=== PATIENT | male | born 1940 | race Caucasian/White ===

== ENCOUNTER 2016-07-18 16:58 | Observation (INO) | payer MEDICARE, OTHER ==
[~2016-07-18] VITALS: Ht 180.3 cm; Wt 90.9 kg
--- NOTE | ~2016-07-18 | HEMODYNAMI ---
PATIENT:MAXWELL DANIELSON MEDICAL RECORD: [id number] : 42 [facility] [id number] ADMISSION DATE: 07/18/16 Generatedon:07/19/201611:00 Patient name: MAXWELL DANIELSON Patient #: [id number] SSN: [id number] : 1940 Date of study: 07/19/2016 Page: Of Hemodynamic Procedure Report Patient Data Patient Demographics Procedure consent was obtained First Name: MAXWELL Gender: Male Last Name: JAGJIT : 1940 Middle Initial: W Age: 76 year(s) Patient #: [id number] Race: SSN: [id number] Additional ID: [id number] Contact details [address]: [address] [place] [address] State: [place] City: [place] Zip code: [address] Past Medical History Allergies Allergen Reaction Date Comments Reported Adhesive tape 12/31/2015 Other allergy 12/31/2015 macrodantin Adhesive tape 03/13/2016 Other allergy 03/13/2016 NITROFURANTOIN Other allergy 07/19/2016 SILK TAPE, MACRODANTIN Admission Admission Data Admission Date: 07/18/2016 Admission Time: 19:08 Room #: D.2118 Height (in.): 71 BSA: 2.11 (m2) Height (cm.): 180.34 BMI: 27.89 (kg/m2) Weight (lbs.): 200 Weight (kg.): 90.72 Lab Results Lab Result Date: 07/19/2016 Lab Result Time: 0:00 Biochemistry Name Units Result Min Max BUN mg/dl 16 --(---*)-- 7 18 Creatinine mg/dl 1.1 --(--*-)-- 0.6 1.3 CBC Name Units Result Min Max Hemoglobin g/dl 13.1 -*(----)-- 13.5 17.5 Procedure Procedure Types Cath Procedure Diagnostic Procedure [facility] w/Coronaries Procedure Description Procedure Date Procedure Date: 07/19/2016 Procedure Start Time: 10:39 Procedure End Time: 10:56 Procedure Staff Name Function Heriberto Guerrero MD Performing Physician Toñito Anne RT Scrub Makenzie Christy RN Nurse Casey Marie RT Loan Processing Supervisor Robin Abarca RT Monitor Procedure Data Cath Procedure Fluoroscopy Diagnostic fluoroscopy Total fluoroscopy Time: 2.1 time: 2.1 min min Diagnostic fluoroscopy Total fluoroscopy dose: 457 dose: 457 mGy mGy Contrast Material Contrast Material Type Amount (ml) Isovue 300 72 Entry Location Entry Primary Successful Side Size Upsize Upsize Entry Closure Succes sful Closure Location (Fr) 1 (Fr) 2 (Fr) Remarks Device Remarks Femoral Right 5 Fr Exoseal artery Diagnostic catheters Device Type Used For End Catheter Placement Cordis 5Fr JL 4.0 Left Coronary Catheter (MP) Angiography Cordis 5Fr 3DRC Catheter Right Coronary (MP) Angiography Cordis 5Fr Pigtail LV Angiography Catheter (MP) Procedure Complications No complications Procedure Medications Medication Administration Route Dosage Oxygen NC 2 l/min Lidocaine 2% added to field 20 Heparin Flush Bag added to field 2 bags (1000units/500ml NS) 0.9% NaCl I.V. 100 ml/hr Versed I.V. 1 mg Fentanyl I.V. 50 mcg Versed I.V. 1 mg Fentanyl I.V. 50 mcg Versed I.V. 1 mg Fentanyl I.V. 50 mcg Versed I.V. 1 mg Fentanyl I.V. 50 mcg Hemodynamics Rest BSA: 2.11 (m2) HGB: 13.1 (g/dl) O2 Consumption: Estimated: 240.98 (ml/min) O2 Co nsumption indexed: Estimated:114.21 (ml/min/m) Heart Rate: 68 (bpm) Pressure Samples Time Site Value (mmHg) Purpose Heart Use Rate(bpm) 10:47 LV 137/1,20 EDP 74 10:48 AO 141/67(98) Pullback 75 Gradients Valve Time Site Site 2 Mean SEP/DFP Peak To Heart Use 1 (mmHg) (sec/min) Peak Rate (mmHg) (bpm) Aortic 10:48 LV AO 29 30 75 141/67(98) Calculations Valve P-P Mean Valve Index Valve Source Name Gradient Area Flow (cm2) Aortic 29 29 Snapshots Pre Cath Intra NCS Post Cath Vital Signs Time Heart Resp SPO2 etCO2 RN4oyam NIBP (mmHg) Rhythm Pain Sedation Rate (ipm) (%) (mmHg) (mmHg) Status Level (bpm) 10:27:48 74 16 100 0 0 160/84(127) NSR 0 (11) 10(A) , No pain 10:32:09 70 17 99 0 0 145/77(115) NSR 0 (11) 10(A) , No pain 10:36:29 69 16 97 0 0 137/75(114) NSR 0 (11) 9(A) , No pain 10:40:49 66 19 96 0 0 125/66(103) NSR 0 (11) 9(A) , No pain 10:45:05 68 16 97 0 0 136/67(105) NSR 0 (11) 9(A) , No pain 10:49:21 75 16 93 0 0 136/71(108) NSR 0 (11) 9(A) , No pain 10:53:35 72 16 96 0 0 127/74(98) NSR 0 (11) 10(A) , No pain Medications Time Medication Route Dose Verified Delivered Reason Notes Effe ctiveness by by 10:23:05 Oxygen NC 2 Heriberto Buffie used for l/min Cesar Christy RN procedure 10:23:11 Lidocaine 2% added 20ml Heriberto Heriberto for local to vial Cesar Guerrero MD anesthetic field 10:23:17 Heparin Flush added 2 Heriberto Heriberto used for Bag to bags Cesar Guerrero MD procedure (1000units/500ml field NS) 10:23:26 0.9% NaCl I.V. 100 Heriberto Buffie Per ml/hr Cesar Christy RN physician 10:29:07 Versed I.V. 1 mg Heriberto Buffie for Cesar Christy RN sedation 10:29:13 Fentanyl I.V. 50 Heriberto Buffie for mcg Cesar Christy RN sedation 10:35:02 Versed I.V. 1 mg Heriberto Buffie for Cesar Christy RN sedation 10:35:06 Fentanyl I.V. 50 Heriberto Buffie for mcg Cesar Christy RN sedation 10:40:15 Versed I.V. 1 mg Heriberto Buffie for Cesar Christy RN sedation 10:40:18 Fentanyl I.V. 50 Heriberto Buffie for mcg Cesar Christy RN sedation 10:46:36 Versed I.V. 1 mg Heriberto Christy RN sedation 10:46:40 Fentanyl I.V. 50 Heriberto Christy RN sedation Procedure Log Time Note 10:00:27 Casey Marie RT(R) sent for patient. Start room use. 10:00:28 Time tracking: Regular hours 10:00:32 Plan of Care:Hemodynamics will remain stable., Cardiac rhythm will remain stable., Comfort level will be maintained., Respiratory function will remain adequate., Patient/ family verbilizes understanding of procedure., Procedure tolerated without complication., Recovers from procedure without complications.. 10:12:15 Patient received from Med II to CCL 1 Alert and oriented. Tansferred to table in Supine position. 10:12:20 Warm blankets applied, and jany hugger turned on for patient comfort. 10:12:21 Correct patient and procedure confirmed by team. 10:12:22 Signed procedure consent form obtained from patient. 10:12:23 ECG and BP/O2 sat monitors applied to patient. 10:23:05 Oxygen 2 l/min NC was given by Makenzie Christy RN; used for procedure; 10:23:11 Lidocaine 2% 20ml vial added to field was given by Heriberto Guerrero MD; for local anesthetic; 10:23:17 Heparin Flush Bag (1000units/500ml NS) 2 bags added to field was given by Heriberto Guerrero MD; used for procedure; 10:23:26 0.9% NaCl 100 ml/hr I.V. was given by Makenzie Christy RN; Per physician; 10:26:39 Vital chart was started 10:26:40 Baseline sample Acquired. 10:26:43 Rhythm: sinus rhythm 10:26:47 Full Disclosure recording started 10:26:59 H&P Date Dictated: 07/18/2016 Within 30 days and on chart.. 10:27:01 Pre-procedure instructions explained to patient. 10:27:01 Pre-op teaching completed and patient verbalized understanding. 10:27:06 Family in patients room. 10:27:08 Patient NPO since Midnight. 10:27:35 Patient allergic to Other allergySILK TAPE, MACRODANTIN 10:27:37 Is the patient allergic to Iodine/contrast media? No. 10:27:42 Is patient on blood thinner?No 10:27:45 Patient diabetic? No. 10:27:48 ----Pre-sedation anethsthesia assessment.---- 10:27:51 Previous problem with sedation/anesthesia? No ? 10:27:52 Snore? Yes 10:27:53 Sleep apnea? No 10:27:54 Deviated septum? No 10:27:56 Opens mouth fully? Yes 10:27:57 Sticks out tongue? Yes 10:27:59 Airway obstruction? No ? 10:28:01 Dentures? No ? 10:28:04 Pre procedure: right dorsailis pedis pulse 1+ Palpable, but thready & weak; easily obliterated 10:28:08 Patient pain scale 0/10 ?. 10:28:13 IV patent on arrival in right wrist with 0.9% NaCl at 10ml/hr. 10:28:33 Lab Result : BUN 16 mg/dl 10:28:33 Lab Result : Hemoglobin 13.1 g/dl 10::33 Lab Result : Creatinine 1.1 mg/dl 10:28:39 Lab results completed and on chart. 10:28:42 Right groin area was prepped with chlora-prep and draped in sterile fashion 10:28:42 Alarms reviewed by R. N. 10:28:43 Sharps counted by scrub and verified by R.N. 10:28:44 --------ALL STOP TIME OUT------ 10:28:44 Final Timeout: patient, procedure, and site verified with staff and physician. All members of the team are in agreement. 10:28:46 Right groin site verified by team. 10:28:49 Physical assessment completed. ASA score P 2 - A patient with mild systemic disease as per Heriberto Guerrero MD. 10:28:53 Sedation plan: IV Moderate Sedation Versed, Fentanyl 10:29:07 Versed 1 mg I.V. was given by Makenzie Christy RN; for sedation; 10:29:13 Fentanyl 50 mcg I.V. was given by Makenzie Christy RN; for sedation; 10:29:30 Use device set Femoral Dx 10:29:30 Acist Syringe opened to sterile field. 10:29:31 Bag Decanter opened to sterile field. 10:29:31 Medline Cath Pack opened to sterile field. 10:29:32 Terumo 5Fr [place] Sheath opened to sterile field. 10:29:32 St Fabián 260cm J .035 wire opened to sterile field. 10:29:33 Acist Hand Control opened to sterile field. 10:29:33 Acist Manifold opened to sterile field. 10:29:34 Diagnostic Infinity 5Fr Multipack catheter opened to sterile field. 10:29:34 Tegaderm 4 x 4 opened to sterile field. 10:29:52 Patient Height : 71 inches 10:29:55 Patient Weight : 200 lbs 10:35:02 Versed 1 mg I.V. was given by Makenzie Christy RN; for sedation; 10:35:06 Fentanyl 50 mcg I.V. was given by Makenzie Christy RN; for sedation; 10:36:46 Baseline sample Acquired. 10:38:21 Zero performed for pressure channel P1 10:39:47 Procedure started. 10:39:59 Local anesthetic to right femoral artery with Lidocaine 2% by Heriberto Guerrero MD.INITIAL ACCESS ONLY 10:40:15 Versed 1 mg I.V. was given by Makenzie Christy RN; for sedation; 10:40:18 Fentanyl 50 mcg I.V. was given by Makenzie Christy RN; for sedation; 10:40:21 A 5 Fr sheath was inserted into the Right Femoral artery 10:42:12 A Cordis 5Fr JL 4.0 Catheter (MP) was advanced over the wire and used for Left Coronary Angiography. 10:42:15 LCA angiography performed. 10:46:35 Catheter removed. 10:46:36 Versed 1 mg I.V. was given by Makenzie Christy RN; for sedation; 10:46:40 Fentanyl 50 mcg I.V. was given by Makenzie Christy RN; for sedation; 10:46:40 A Cordis 5Fr 3DRC Catheter (MP) was advanced over the wire and used for Right Coronary Angiography. 10:46:42 RCA angiography performed. 10:46:43 Catheter removed. 10:46:49 A Cordis 5Fr Pigtail Catheter (MP) was advanced over the wire and used for LV Angiography. 10:46:53 LV angiography performed. 10:46:54 LV gram done using CORTEZ 10:47:53 LV hemodynamics recorded. 10:47:56 Injector settings: Ml/sec: 10, Volume: 20, 10:48:09 EF : 60 % 10:48:11 Catheter removed. 10:48:50 Cordis 6Fr Exoseal opened to sterile field. 10:53:33 Procedure ended.(Physican Out) 10:53:36 Contrast amount:Isovue 300 72ml. 10:53:41 Sheath removed intact; hemostasis achieved with Exoseal to the Right Femoral artery. 10:53:48 Fluoroscopy time 02.10 minutes. 10:53:52 Flurop Dose total: 457 10:53:52 Fluoroscopy dose: 457 mGy 10:53:54 Sharps counted by scrub and verified by R.N. 10:53:54 Insertion/operative site no bleeding no hematoma. 10:53:57 Post-op/insertion site Right Femoral artery dressed using a 4 x 4 and Tegaderm. 10:54:05 Post right femoral artery:stable 10:54:06 Post Procedure Pulses reassessed and unchanged 10:54:08 Post procedure: right dorsailis pedis pulse 1+ Palpable, but thready & weak; easily obliterated. 10:54:11 Post procedure rhythm: sinus rhythm 10:54:18 Post procedure instruction explained to patient.Patient verbalizes understanding. 10:54:20 Procedure and supply charges have been captured, reviewed, submitted and are correct. 10:56:12 Procedure Complication : No complications 10:56:15 Vital chart was stopped 10:56:15 See physician's report for complete and final results. 10:56:19 Report given to PCU. 10:56:43 Patient transfered to PCU with Bed. 10:56:45 Procedure ended. 10:56:45 Full Disclosure recording stopped 10:56:48 End room use (Document Last) Device Usage Item Name Manufacture Quantity Catalog Hospital Part Current Minimal Lo t# / Number Charge Number Stock Stock Serial# Code Acist Acist 1 [id number] [id number] [id number] [id number] 20 Syringe [employer] Inc Bag Microtek 1 2002S 940112 10297 637879 5 DecEnterpriseDB [employer]. Medline Cardinal 1 [id number] 79931 535047 5 MembraneX Terumo 5Fr Terumo 1 [id number] 948037 561525 593929 [address] [facility] 1 331342 707127 667767 379899 30 260cm J .035 wire Acist Hand Acist 1 00132 428197 797553 363832 5 Control Medical [employer] Inc Acist Acist 1 84234 234439 948000 648506 5 Manifold Medical Systems Inc Diagnostic Cardinal 1 [id number] 457367 88785 782443 30 Infinity Health 5Fr Multipack catheter Tegaderm 4 3M 1 1626W 845009 405832 552561 5 x 4 Cordis 5Fr Cardinal 1 [id number] 5 JL 4.0 Health Catheter (MP) Cordis 5Fr Cardinal 1 388243 5 3DRC Health Catheter (MP) Cordis 5Fr Cardinal 1 [id number] 5 Pigtail Health Catheter (MP) Cordis 6Fr Cardinal 1 EX600 670264 708911 158145 10 Lennon Lines Signature Audit Gerlaw Stage Time Signature Unsigned Intra-Procedure 07/19/2016 Robin Abarca 11:00:43 AM RT(R) Signatures Monitor : Robin Abarca RT Signature : Date : Time : [place] [address] [place] [address]
[~2016-07-18 16:58] MED LIST: ADVIL200 MG PO; ALEVE220 MG PO; AMBIEN10 MG PO; ASPIRIN 81 MG E81 MG PO; AUGMENTIN 875-11 TAB PO; BACTRIM 400-801 TAB PO; BAYER ASPIRIN325 MG PO; BENADRYL25 M1 PO; CARAFATE1 G/10 ML PO; HYDROCODON-ACE1 EAC7 PO; ISOSORBIDE MONO30 M1 PO; Imdur PO; LIPITOR10 MG PO; LIPITOR20 MG PO; METOPROLOL TART25 MG PO; NITROSTAT0.3 MG SL; NITROSTAT0.4 MG SL; NORVASC10 MG PO; NORVASC5 MG PO; PLAVIX75 MG PO; PRILOSEC20 MG PO; PROTONIX40 MG PO; RANEXA500 MG PO; SYMBICORT 16010.2 GM INH; TRIMETHOPRIM100 MG PO; ULTRAM50 MG PO; VENTOLIN HFA18 GM INH; VITAMIN B-12250 MCG PO
[2016-07-18 17:51] LABS: BASOPHILS 0 % (0.0-2.0); EOSINOPHILS 3.2 % (0-7); HEMATOCRIT 39.9 % (42.0-54.0); HEMOGLOBIN 13.1 g/dL (13.5-17.5); IMMATURE GRANULOCYTES 0.6 % (0-5); LYMPHOCYTES 18.5 % (15-50); MCH 32.3 pg (26.0-34.0); MCHC 32.8 g/dL (31.0-37.0); MCV 98.3 fL (80.0-100.0); MEAN PLATELET VOLUME 10.2 fL (7.4-10.4); MONOCYTES 10.4 % (2-11); NEUTROPHILS 67.3 % (40-80); PLATELET COUNT 160 10x3/uL (130-400); RBC 4.06 10x6/uL (4.20-6.10); RDW 16.8 % (11.5-14.5); WBC 6.8 10x3/uL (4.8-10.8)
[2016-07-18 18:10] LABS: ALBUMIN 3.3 g/dL (3.4-5.0); ALKALINE PHOSPHATASE 72 U/L (46-116); ALT (SGPT) 42 U/L (10-68); BILIRUBIN - TOTAL 0.39 mg/dL (0.2-1.3); CALC OSMOLALITY 283 mosm/kg (275-300); CALCIUM 8.5 mg/dL (8.5-10.1); CARBON DIOXIDE 23.2 mmol/L (21.0-32.0); CHLORIDE - SERUM 109 mmol/L (98-107); CREATININE - SERUM 1.1 mg/dL (0.6-1.3); GLUCOSE 94 mg/dL (74-106); PROTEIN - SERUM 6.5 g/dL (6.4-8.2); SODIUM 142 mmol/L (136-145); UREA NITROGEN 16 mg/dL (7-18); eGFR NON AFRICAN AMERICAN 69 mL/min (90-120)
[2016-07-18 18:21] LABS: CHOL - HDL RATIO 3.4 ratio (2.3-4.9); CHOLESTEROL, TOTAL 212 mg/dL (0-200); CKMB 37.5 U/L (0.0-3.6); CREATINE KINASE 33 UL (21-232); HDL CHOLESTEROL 63 mg/dL (32-96); LDL CHOLESTEROL 92 mg/dL (0-100); LDL-HDL RATIO 1.5 ratio (1.5-3.5); PRO BNP 63 pg/mL (0-450); TRIGLYCERIDE 287 mg/dL (30-200); TROPONIN-I < 0.017 ng/mL (0.000-0.060)
--- NOTE | 2016-07-18 20:15 | NUR ---
PT ARRIVES VIA WC TO THE FLOOR ACCOMPANIED BY SPOUSE. ADMISSION ASSESSMENT COMPLETED, HISTORY OBTAINED. MEDICATIONS RECONCILED AT THE BEDSIDE. PLACED ON TELE, HR 80. NSR ON MONITOR. O2 2LPM NC PLACED, PT SATS 97%. PT AND HIS SPOUSE RELATE THAT THE PT WEARS O2 CONTINUOUSLY AT HOME NOW. VSS, AFEBRILE. PT UROSTOMY CONNECTED TO BSD PER PT'S PROTOCOL. CALL LIGHT PLACED WITHIN REACH. SPOUSE AT BEDSIDE AND HAS RELATED TO NURSING STAFF SHE WILL BE STAYING THE NIGHT. RECLINER PLACED AT THE BEDSIDE.
[2016-07-18 22:24] VITALS: BP 159/75; Ht 180.3 cm; Wt 90.9 kg
--- NOTE | 2016-07-18 22:46 | NUR ---
PT RESTING SOUNDLY WITHOUT C/O OR DISTRESS NOTED. DENIES ANY FURTHER C/O CHEST PAIN AT THIS TIME. WILL MONITOR.
--- NOTE | 2016-07-19 00:01 | NUR ---
NO CHANGES NOTED IN ASSESSMENT. NO NEEDS VOICED. CALL LIGHT WITHIN REACH. WILL CONT TO MONITOR.
[2016-07-19 01:01] VITALS: BP 123/72
[2016-07-19 04:57] VITALS: BP 138/69
--- NOTE | 2016-07-19 07:40 | NUR ---
ASSESSMENT COMPLETED. TELEMERTY SHOWS SR. O2 AT 2 L/M PER NC. UROSTOMY AND COLOSTOMY NOTED. FAMILY AT BEDSIDE. DENIES ANY NEEDS. WILL MONITOR
[2016-07-19 08:23] VITALS: BP 113/69
--- NOTE | 2016-07-19 11:24 | NUR ---
BACK FROM OIL RIG DRILLER. V/S STABLE RIGHT GROIN SOFT WITH DRSG DRY AND INTACT. PPP. TELEMERTY SHOWS SR. FAMILY AT BEDSIDE
[2016-07-19 11:41] LABS: BASOPHILS 0.2 % (0.0-2.0); HEMATOCRIT 36.7 % (42.0-54.0); HEMOGLOBIN 12.3 g/dL (13.5-17.5); IMMATURE GRANULOCYTES 0.4 % (0-5); LYMPHOCYTES 20.9 % (15-50); MCH 33.4 pg (26.0-34.0); MCHC 33.5 g/dL (31.0-37.0); MCV 99.7 fL (80.0-100.0); MEAN PLATELET VOLUME 10.6 fL (7.4-10.4); NEUTROPHILS 64.5 % (40-80); PLATELET COUNT 140 10x3/uL (130-400); RBC 3.68 10x6/uL (4.20-6.10); RDW 16.9 % (11.5-14.5); WBC 5.1 10x3/uL (4.8-10.8)
[2016-07-19 11:51] LABS: CALC OSMOLALITY 289 mosm/kg (275-300); CARBON DIOXIDE 22.3 mmol/L (21.0-32.0); CHLORIDE - SERUM 112 mmol/L (98-107); GLUCOSE 103 mg/dL (74-106); POTASSIUM - SERUM 4.1 mmol/L (3.5-5.1); SODIUM 145 mmol/L (136-145); UREA NITROGEN 16 mg/dL (7-18); eGFR NON AFRICAN AMERICAN 77 mL/min (90-120)
--- NOTE | 2016-07-19 14:27 | NUR ---
PATIENT HAD HEART CATH TODAY THROUGH RIGHT GROIN. DRESSING IS DRY AND INTACT, DENIES ANY CHEST PAIN OR DISCOMFORT. WILL BE DISCHARGING HOME SOON.
--- NOTE | 2016-07-19 14:30 | NUR ---
DCD. IV DCD WITH TIP INTACT. INSTRUCTIONS GIVEN TO PT AND FAMILY. TO PRIVATE CAR PER WHEELCHAIR.
--- NOTE | 2016-08-12 08:17 | OP ---
PATIENT NAME: MAXWELL DANIELSON MEDICAL RECORD: [id number] :42 LOCATION:D.M2 D.2118 ADMISSION DATE:07/18/16 SURGEON: ILIA TSAI M.D. DATE OF OPERATION: 07/19/2016 Catheterization Report REFERRING PHYSICIAN: Arthur Gonsalves MD. PROCEDURES PERFORMED: 1. Selective coronary angiography. 2. Left heart catheterization with ventriculogram. INDICATION: A 76-year-old gentleman with history of coronary artery disease and multivessel stenting, who presents with recurrent angina. EQUIPMENT USED: A 5-Mozambican JL4, Calvin right, pigtail catheter. TECHNIQUE: A 5-[place]ozambican sheath was inserted in retrograde fashion in the right common femoral artery. Next, selective coronary angiography was performed in standard 5-Mozambican JL4 and Calvin right. Left heart catheterization performed using pigtail catheter. CORONARY ANATOMY: 1. Left main: Left main trunk is moderate in caliber. It gives rise to the LAD and circumflex. It has no obstruction. 2. LAD: This vessel is moderate in caliber. The proximal vessel has been stented. The stent is widely patent. There is no evidence of restenosis. 3. Circumflex: This vessel is moderate in caliber. The ostium has been stented. The stent appears widely patent. There is no evidence of restenosis. 4. Right coronary artery: This vessel is large in caliber and dominant. The mid vessel has been stented. The stent is widely patent without evidence of restenosis. 5. Left ventricle: Left ventricle is normal in size and function. No wall motion abnormalities are noted. Estimated ejection fraction is 60%. IMPRESSION: 1. Widely patent stents without any evidence of restenosis. 2. Normal left ventricular function. RECOMMENDATIONS: We will continue the medical management. TRANSINT:[id number] Voice Confirmation ID: [id number] DOCUMENT ID: [id number] ILIA TSAI M.D. at 0817 CC: [id number] DICTATION DATE: 07/19/16 1058 CLINICAL DATA SPECIALIST: 07/19/16 1153 DIS IN 07/19/16 [place] [address]
--- NOTE | 2016-09-23 07:02 | DS ---
PATIENT:MAXWELL DANIELSON :42 MEDICAL RECORD: [id number] DISCHARGE SUMMARY ADMISSION DATE: 07/18/16 DISCHARGE DATE: 07/19/16 ADMIT DATE: 07/18/2016 DISCHARGE DATE: 07/19/2016 ADMIT DIAGNOSES: Atherosclerotic heart disease of [place] coronary artery with other angina pectoris. PRINCIPAL DIAGNOSIS: Atherosclerotic heart disease of [place] coronary arteries with unstable angina pectoris. OTHER DIAGNOSES: Included presence of coronary angioplasty implant and graft, chronic obstructive pulmonary disease, essential hypertension and a personal history of nicotine dependence. CONSULTS: Include cardiology. PROCEDURES: Left heart artery ventricular angiography. HOSPITAL COURSE: The patient was admitted to observation from the ER overnight and then cardiology performed thorough evaluation and then the patient was discharged home. DISCHARGE MEDICATIONS: Please refer to the patient's discharge medication reconciliation form. TRANSINT:[id number] Voice Confirmation ID: [id number] DOCUMENT ID: [id number] MAXINE THRASHER MD at 0702 CC: [id number] DICTATION DATE: 09/22/16 1340 SUSPENSION CORD TIER: 09/23/16 0244 DIS IN 07/19/16 [place] [id number] [place] [id number]
== END 2016-07-19 14:35 | disposition home or self-care (01) ==
LOC: D.ER 16:58 → OBSVTIME 19:08 → D.M2 19:08
PROVIDERS: Emergency Medicine; Internal Medicine Cardiovascular Disease; ADMIT Family Medicine
DX: I25.110 Atherosclerotic heart disease of native coronary artery with unstable angina pectoris (principal); Z95.5 Presence of coronary angioplasty implant and graft; J44.9 Chronic obstructive pulmonary disease, unspecified; I10 Essential (primary) hypertension; Z87.891 Personal history of nicotine dependence

== ENCOUNTER 2016-09-28 19:40 | Emergency (ER) | payer MEDICARE, OTHER ==
[2016-07-18 22:24] VITALS: BMI 27.9
[2016-09-28 20:36] LABS: BASOPHILS 0.3 % (0-2); EOSINOPHILS 2.1 % (0-7); HEMATOCRIT 42.7 % (42.0-54.0); HEMOGLOBIN 14.1 g/dL (13.5-17.5); IMMATURE GRANULOCYTES 0.3 % (0-5); LYMPHOCYTES 14.2 % (15-50); MCV 102.9 fL (80.0-100.0); MEAN PLATELET VOLUME 11.2 fL (7.4-10.4); MONOCYTES 7.8 % (2-11); NEUTROPHILS 75.3 % (40-80); PLATELET COUNT 190 10x3/uL (130-400); RBC 4.15 10x6/uL (4.20-6.10); RDW 14.3 % (11.5-14.5); WBC 7.6 10x3/uL (4.8-10.8)
[2016-09-28 21:00] LABS: ALBUMIN 3.4 g/dL (3.4-5.0); ALKALINE PHOSPHATASE 68 U/L (46-116); ALT (SGPT) 50 U/L (10-68); BILIRUBIN - TOTAL 0.56 mg/dL (0.2-1.3); CALC OSMOLALITY 286 mosm/kg (275-300); CALCIUM 9.1 mg/dL (8.5-10.1); CARBON DIOXIDE 24.9 mmol/L (21.0-32.0); CHLORIDE - SERUM 108 mmol/L (98-107); CREATININE - SERUM 1.4 mg/dL (0.6-1.3); GLUCOSE 113 mg/dL (74-106); POTASSIUM - SERUM 4.1 mmol/L (3.5-5.1); PROTEIN - SERUM 6.8 g/dL (6.4-8.2); SODIUM 142 mmol/L (136-145); UREA NITROGEN 22 mg/dL (7-18); eGFR NON AFRICAN AMERICAN 52 mL/min (90-120)
[2016-09-28 21:15] LABS: CHOL - HDL RATIO 3.2 ratio (2.3-4.9); CHOLESTEROL, TOTAL 203 mg/dL (0-200); CREATINE KINASE 54 UL (21-232); HDL CHOLESTEROL 63 mg/dL (32-96); LDL CHOLESTEROL 86 mg/dL (0-100); LDL-HDL RATIO 1.4 ratio (1.5-3.5); TRIGLYCERIDE 271 mg/dL (30-200)
[2016-09-28 21:17] LABS: TROPONIN-I < 0.017 ng/mL (0.000-0.060)
[2016-09-28 23:27] LABS: CREATINE KINASE 48 UL (21-232)
[2016-09-28 23:29] LABS: TROPONIN-I < 0.017 ng/mL (0.000-0.060)
== END 2016-09-28 23:45 | disposition home or self-care (01) ==
LOC: D.ER 19:40
PROVIDERS: Family Medicine; Nurse Practitioner Acute Care
DX: R07.89 Other chest pain (principal); I25.10 Atherosclerotic heart disease of native coronary artery without angina pectoris; J44.9 Chronic obstructive pulmonary disease, unspecified; E78.5 Hyperlipidemia, unspecified; Z93.3 Colostomy status; I49.3 Ventricular premature depolarization

== ENCOUNTER 2016-10-01 13:38 | Observation (INO) | payer MEDICARE, OTHER ==
[~2016-10-01] VITALS: Ht 180.3 cm; Wt 91.0 kg
--- NOTE | ~2016-10-01 | HEMODYNAMI ---
PATIENT:MAXWELL DANIELSON MEDICAL RECORD: [id number] : 42 LOCATION:[facility] D.2117 [facility]# [id number] ADMISSION DATE: 10/01/16 Generatedon:10/02/201610:44 Patient name: MAXWELL DANIELSON Patient #: [id number] SSN: [id number] : 1940 Date of study: 10/02/2016 Page: Of Hemodynamic Procedure Report Patient Data Patient Demographics Procedure consent was obtained First Name: MAXWELL Gender: Male Last Name: JAGJIT : 1940 Middle Initial: W Age: 76 year(s) Patient #: [id number] Race: SSN: [id number] Additional ID: [id number] Contact details Address: [address] [place] [address] State: [place] City: [place] Zip code: [address] Past Medical History Allergies Allergen Reaction Date Comments Reported Adhesive tape 12/31/2015 Other allergy 12/31/2015 macrodantin Adhesive tape 03/13/2016 Other allergy 03/13/2016 NITROFURANTOIN Other allergy 07/19/2016 SILK TAPE, MACRODANTIN Other allergy 10/02/2016 Macrodantin, silk tape Admission Admission Data Admission Date: 10/01/2016 Admission Time: 17:25 Arrival Date: 10/01/2016 Arrival Time: 17:25 Admit Source: Other Insurance Payor: Medicare Room #: D.2117 Lab Results Lab Result Date: 10/02/2016 Lab Result Time: 0:00 Biochemistry Name Units Result Min Max BUN mg/dl 25 --(----)-* 7 18 Creatinine mg/dl 1.4 --(----)*- 0.6 1.3 CBC Name Units Result Min Max Hemoglobin g/dl 14.1 --(*---)-- 13.5 17.5 Procedure Procedure Types Cath Procedure Diagnostic Procedure LHC [facility] w/Coronaries Miscellaneous Procedures Moderate Sedation up to 15 minutes Procedure Description Procedure Date Procedure Date: 10/02/2016 Procedure Start Time: 10:29 Procedure End Time: 10:43 Procedure Staff Name Function Heriberto Guerrero MD Performing Physician Ana Solitario RT Scrub Makenzie Christy RN Nurse Keyla Frey RT Monitor Procedure Data Cath Procedure Fluoroscopy Diagnostic fluoroscopy Total fluoroscopy Time: 1.6 time: 1.6 min min Diagnostic fluoroscopy Total fluoroscopy dose: 166 dose: 166 mGy mGy Contrast Material Contrast Material Type Amount (ml) Isovue 300 59 Entry Location Entry Primary Successful Side Size Upsize Upsize Entry Closure Succes sful Closure Location (Fr) 1 (Fr) 2 (Fr) Remarks Device Remarks Femoral Right 5 Fr Exoseal artery Estimated blood loss: 10 ml Diagnostic catheters Device Type Used For End Catheter Placement Medtronic Dexterity 5Fr Procedure JL 4.0 catheter (NO CHARGE) Cordis 5Fr 3DRC Catheter Procedure (MP) Medtronic Dexterity 5Fr Ventriculography Pigtail catheter (NO CHARGE) Procedure Complications No complications Procedure Medications Medication Administration Route Dosage Oxygen NC 2 l/min Lidocaine 2% added to field 20 Heparin Flush Bag added to field 2 bags (1000units/500ml NS) 0.9% NaCl I.V. 100 ml/hr Versed I.V. 1 mg Fentanyl I.V. 50 mcg Versed I.V. 1 mg Fentanyl I.V. 50 mcg Versed I.V. 1 mg Fentanyl I.V. 50 mcg Versed I.V. 1 mg Fentanyl I.V. 50 mcg Versed I.V. 2 mg Hemodynamics Rest HGB: 14.1 (g/dl) Heart Rate: 70 (bpm) Pressure Samples Time Site Value (mmHg) Purpose Heart Use Rate(bpm) 10:38 LV 114/-11,9 Snapshot 69 10:39 AO 111/50(74) Pullback 69 10:39 LV 109/-14,10 Pullback 69 Gradients Valve Time Site 1 Site 2 Mean SEP/DFP Peak To Heart Use (mmHg) (sec/min) Peak Rate (mmHg) (bpm) Aortic 10:39 LV AO 0 6 0 69 109/-14,10 111/50(74) Calculations Valve P-P Mean Valve Index Valve Source Name Gradient Area Flow (cm2) Aortic 0 0 0 0 Snapshots Pre Cath Intra NCS Post Cath Vital Signs Time Heart Resp SPO2 NIBP Rhythm Pain Sedation Rate (ipm) (%) (mmHg) Status Level (bpm) 10:10:20 68 22 96 126/75(99) NSR 0 (11) 10(A) , No pain 10:14:40 67 17 95 117/64(97) NSR 0 (11) 10(A) , No pain 10:18:50 70 16 97 108/74(95) NSR 0 (11) 10(A) , No pain 10:23:02 67 15 95 107/67(86) NSR 0 (11) 10(A) , No pain 10:27:14 67 17 95 106/63(85) NSR 0 (11) 10(A) , No pain 10:31:27 56 16 95 104/61(96) NSR 0 (11) 10(A) , No pain 10:35:39 62 15 95 105/65(81) NSR 0 (11) 10(A) , No pain 10:39:51 68 17 97 115/64(88) NSR 0 (11) 10(A) , No pain Medications Time Medication Route Dose Verified Delivered Reason Notes Effe ctiveness by by 10:06:16 Oxygen NC 2 Heriberto Buffie for l/min Cesar Christy RN sedation 10:16:29 Lidocaine 2% added 20ml Heriberto Heriberto for local to vial Cesar Guerrero MD anesthetic field 10:16:37 Heparin Flush added 2 Heriberto Heriberto used for Bag to bags Cesar Guerrero MD procedure (1000units/500ml field NS) 10:16:49 0.9% NaCl I.V. 100 Heriberto Buffie Per ml/hr Cesar Christy RN physician 10:17:12 Versed I.V. 1 mg Heriberto Buffie for Cesar Christy RN sedation 10:17:21 Fentanyl I.V. 50 Heriberto Buffie for mcg Cesar Christy RN sedation 10:21:52 Versed I.V. 1 mg Heriberto Buffie for Cesar Christy RN sedation 10:21:56 Fentanyl I.V. 50 Heriberto Buffie for mcg Cesar Christy RN sedation 10:26:54 Versed I.V. 1 mg Heriberto Buffie for Cesar Christy RN sedation 10:26:58 Fentanyl I.V. 50 Heriberto Buffie for yodit Christy RN sedation 10:33:43 Versed I.V. 1 mg Heriberto Makenzie for Cesar Christy RN sedation 10:33:47 Fentanyl I.V. 50 Heriberto [place] [facility] [place] Christy RN sedation 10:37:27 Versed I.V. 2 mg Heriberto Banegas for Cesar Christy RN sedation Procedure Log Time Note 9:02:49 Informed consent obtained and on chart 9:04:15 Admit Source: Other 9:04:22 Arrival Date: 10/01/2016 5:25:00 PM 9:04:30 Insurance Payor : Medicare 9:05:11 Lab Result : BUN 25 mg/dl 9:05:11 Lab Result : Hemoglobin 14.1 g/dl 9:05:11 Lab Result : Creatinine 1.4 mg/dl 9:05:15 Diagnostic Cath Status : Elective 9:05:34 Makenzie Christy RN sent for patient. Start room use. 9:05:35 Time tracking: Regular hours 9:05:39 Plan of Care:Hemodynamics will remain stable., Cardiac rhythm will remain stable., Comfort level will be maintained., Respiratory function will remain adequate., Patient/ family verbilizes understanding of procedure., Procedure tolerated without complication., Recovers from procedure without complications.. 10:06:16 Oxygen 2 l/min NC was administered by Makenzie Christy RN; for sedation; 10:09:06 Patient received from Med II to CCL 3 Alert and oriented. Tansferred to table in Supine position. 10:09:07 Warm blankets applied, and jany hugger turned on for patient comfort. 10:09:08 Correct patient and procedure confirmed by team. 10:09:08 ECG and BP/O2 sat monitors applied to patient. 10:09:09 Vital chart was started 10:09:10 Baseline sample Acquired. 10:09:18 Rhythm: sinus rhythm 10:09:19 Full Disclosure recording started 10:09:24 H&P Date Dictated: 10/02/2016 Within 30 days and on chart.. 10:09:25 Pre-procedure instructions explained to patient. 10:09:30 Patient NPO since Midnight. 10:09:54 Patient allergic to Other allergyMacrodantin, silk tape 10:09:56 Is the patient allergic to Iodine/contrast media? No. 10:10:00 Is patient on blood thinner?No 10:10:03 Patient diabetic? No. 10:10:08 Snore? Yes 10:10:09 Sleep apnea? Yes 10:10:14 Airway obstruction? Yes COPD 10:10:20 Patient pain scale 0/10 ?. 10:10:28 IV patent on arrival in right hand with 0.9% NaCl at O. 10:10:35 Lab results completed and on chart. 10:10:40 Right groin area was prepped with chlora-prep and draped in sterile fashion 10:10:41 Alarms reviewed by R. N. 10:10:41 Alarms reviewed by R. N. 10:10:42 Physician paged 10:10:45 Physician arrived 10:10:45 --------ALL STOP TIME OUT------ 10:10:47 Final Timeout: patient, procedure, and site verified with staff and physician. All members of the team are in agreement. 10:10:49 Right groin site verified by team. 10:10:53 Sedation plan: IV Moderate Sedation Versed, Fentanyl 10:11:28 Use device set Femoral Dx 10:11:29 Acist Syringe opened to sterile field. 10:11:30 Bag Decanter opened to sterile field. 10:11:30 Medline Cath Pack opened to sterile field. 10:11:31 Terumo 5Fr Luther Sheath opened to sterile field. 10:11:31 St Fabián 260cm J .035 wire opened to sterile field. 10:11:32 Acist Hand Control opened to sterile field. 10:11:33 Acist Manifold opened to sterile field. 10:12:32 Procedure type changed to Cath procedure, Diagnostic procedure, LHC, LHC w/Coronaries, Miscellaneous Procedures, Moderate Sedation up to 15 minutes 10:14:04 Tegaderm 4 x 4 opened to sterile field. 10:16:29 Lidocaine 2% 20ml vial added to field was administered by Heriberto Guerrero MD; for local anesthetic; 10:16:37 Heparin Flush Bag (1000units/500ml NS) 2 bags added to field was administered by Heriberto Guerrero MD; used for procedure; 10:16:49 0.9% NaCl 100 ml/hr I.V. was administered by Makenzie Christy RN; Per physician; 10:17:12 Versed 1 mg I.V. was administered by Buffie Christy RN; for sedation; 10:17:21 Fentanyl 50 mcg I.V. was administered by Makenzie Christy RN; for sedation; 10:21:52 Versed 1 mg I.V. was administered by Makenzie Christy RN; for sedation; 10::56 Fentanyl 50 mcg I.V. was administered by Makenzie Christy RN; for sedation; 10:25:33 Zero performed for pressure channel P1 10::54 Versed 1 mg I.V. was administered by Makenzie Christy RN; for sedation; 10::58 Fentanyl 50 mcg I.V. was administered by Makenzie Christy RN; for sedation; 10:28:50 Procedure started. 10:29:08 Local anesthetic to right femoral artery with Lidocaine 2% by Heriberto Guerrero MD.INITIAL ACCESS ONLY 10:33:15 A 5 Fr sheath was inserted into the Right Femoral artery 10:33:43 Versed 1 mg I.V. was administered by Makenzie Christy RN; for sedation; 10:33:47 Fentanyl 50 mcg I.V. was administered by Makenzie Christy RN; for sedation; 10:33:59 A Medtronic Dexterity 5Fr JL 4.0 catheter (NO CHARGE) was advanced over the wire and used for Procedure. 10:34:04 LCA angiography performed. 10:35:40 Catheter removed. 10:35:51 A Cordis 5Fr 3DRC Catheter () was advanced over the wire and used for Procedure. 10:35:54 RCA angiography performed. 10:36:57 Catheter removed. 10:37:17 A Medtronic Dexterity 5Fr Pigtail catheter (NO CHARGE) was advanced over the wire and used for Ventriculography. 10:37:27 Versed 2 mg I.V. was administered by Makenzie Christy RN; for sedation; 10:37:36 LV gram done using CORTEZ 10:39:08 EF : 55 % 10:39:29 Catheter removed. 10:39:40 Cordis 5Fr Exoseal opened to sterile field. 10:39:54 Sheath removed intact; hemostasis achieved with Exoseal to the Right Femoral artery. 10:39:58 Procedure ended.(Physican Out) 10:41:22 Fluoroscopy time 01.60 minutes. 10:41:31 Fluoroscopy dose: 166 mGy 10:41:31 Flurop Dose total: 166 10:41:52 Contrast amount:Isovue 300 59ml. 10:41:53 Sharps counted by scrub and verified by R.N. 10:41:57 Insertion/operative site no bleeding no hematoma. 10:41:59 Post Procedure Pulses reassessed and unchanged 10:42:03 Post-procedure physical assessment completed. ASA score P 2 - A patient with mild systemic disease as per Heriberto Guerrero MD. 10:42:15 Post procedure rhythm: unchanged. 10:42:18 Estimated blood loss: 10 ml 10:42:30 Procedure and supply charges have been captured, reviewed, submitted and are correct. 10:42:52 Procedure Complication : No complications 10:42:56 Vital chart was stopped 10:43:00 See physician's report for complete and final results. 10:43:04 Report given to Med II. 10:43:08 Patient transfered to [facility] II with Bed. 10:43:10 Procedure ended. 10:43:10 Full Disclosure recording stopped 10:43:14 End room use (Document Last) Device Usage Item Name Manufacture Quantity Catalog Hospital Part Current Minimal Lo t# / Number Charge Number Stock Stock Serial# Code Acist Acist 1 [id number] [id number] 20 Syringe Medical Systems Inc Bag Microtek 1 2002S 378604 68021 881657 5 Decanter Medical Inc. Medline Cardinal 1 [id number] 012552 87628 [id number] 5 Cath Pack DeluxeBox Terumo Terumo 1 [id number] 982281 043569 263153 [address] [facility] 1 [id number] 111675 097413 786223 30 260cm J .035 wire Acist Acist 1 42684 079674 215116 081546 5 Hand Medical Control Systems Inc Acist Acist 1 36938 917334 521894 520688 5 Manifold Medical Systems Inc Tegaderm 1 1626W 166887 836268 365393 5 4 x 4 Medtronic Medtronic 1 [id number] 034785 262727 5 Dexterity 5Fr JL 4.0 catheter (NO CHARGE) Cordis Cardinal 1 [id number] 5 5Fr 3DRC Health Catheter (MP) Medtronic Medtronic 1 [id number] 265638 419247 5 Dexterity 5Fr Pigtail catheter (NO CHARGE) Cordis Cardinal 1 EX500 035185 510423 024185 10 5F Health Exoseal Signature Audit [place] Stage Time Signature Unsigned Intra-Procedure 10/02/2016 Keyla Frey 10:44:07 AM RT(R) Signatures Monitor : Keyla Frey Signature : RT Date : Time : [id number] [place] [address]
--- NOTE | ~2016-10-01 | OP ---
PATIENT NAME: MAXWELL DANIELSON MEDICAL RECORD: [id number] :42 LOCATION:D. D.2117 ADMISSION DATE:10/01/16 SURGEON: ILIA TSAI M.D. DATE OF OPERATION: 10/02/2016 PROCEDURES PERFORMED: 1. Selective coronary angiography. 2. Left heart catheterization with ventriculogram. INDICATION: A 76-year-old gentleman with history of coronary artery disease who presents with accelerating angina. EQUIPMENTS USED: A 5-Congolese JL4, Calvin right, pigtail catheter. TECHNIQUE: A 5-Congolese sheath was placed in retrograde fashion in the right common femoral artery. Next, selective coronary angiography was performed in standard views using 5-Congolese JL4 and Calvin right. Left heart catheterization was performed using pigtail catheter. CORONARY ANATOMY: 1. Left main: Left main trunk is moderate in caliber. It gives rise to the LAD and circumflex. It is angiographically normal. 2. LAD: This is a moderate-caliber vessel extending to the apex. The proximal vessel has been stented. The stent is widely patent. There is no evidence of restenosis. 3. Circumflex: This vessel is small in caliber. The proximal vessel has been stented. The stent has mild irregularities, but nothing worse than 20%. 4. Right coronary: This vessel is moderate in caliber and dominant. The proximal vessel has mild irregularities, but nothing worse than 20%. The mid vessel has been stented. The stent is widely patent. There is no evidence of restenosis. 5. Left ventricle: Left ventricle is normal in size and function. No wall motion abnormalities are noted. Estimated ejection fraction is 55%. IMPRESSION: 1. Patent stents in the left anterior descending and right coronary artery without evidence of restenosis. 2. Normal left ventricular function. RECOMMENDATIONS: At this point, we will continue with medical management. TRANSINT:[id number] Voice Confirmation ID: [id number] DOCUMENT ID: [id number] ILIA TSAI M.D. CC: [id number] DICTATION DATE: 10/02/16 1046 DETECTIVE [place]: 10/02/162021 DIS IN 10/02/16 [facility] [address] [place] [address]
[2016-10-01 14:18] LABS: BASOPHILS 0.1 % (0-2); EOSINOPHILS 2.2 % (0-7); HEMATOCRIT 42.6 % (42.0-54.0); HEMOGLOBIN 14.1 g/dL (13.5-17.5); IMMATURE GRANULOCYTES 0.3 % (0-5); LYMPHOCYTES 19.2 % (15-50); MCH 33.9 pg (26.0-34.0); MCHC 33.1 g/dL (31.0-37.0); MCV 102.4 fL (80.0-100.0); MEAN PLATELET VOLUME 10.9 fL (7.4-10.4); MONOCYTES 11.9 % (2-11); NEUTROPHILS 66.3 % (40-80); PLATELET COUNT 188 10x3/uL (130-400); RBC 4.16 10x6/uL (4.20-6.10); RDW 14.1 % (11.5-14.5); WBC 7.3 10x3/uL (4.8-10.8)
[2016-10-01 14:35] LABS: ALBUMIN 3.8 g/dL (3.4-5.0); ALKALINE PHOSPHATASE 70 U/L (46-116); ALT (SGPT) 49 U/L (10-68); BILIRUBIN - TOTAL 0.88 mg/dL (0.2-1.3); CALC OSMOLALITY 286 mosm/kg (275-300); CALCIUM 9.3 mg/dL (8.5-10.1); CARBON DIOXIDE 22.3 mmol/L (21.0-32.0); CHLORIDE - SERUM 108 mmol/L (98-107); CREATININE - SERUM 1.4 mg/dL (0.6-1.3); GLUCOSE 102 mg/dL (74-106); POTASSIUM - SERUM 4.4 mmol/L (3.5-5.1); PROTEIN - SERUM 6.8 g/dL (6.4-8.2); SODIUM 142 mmol/L (136-145); UREA NITROGEN 25 mg/dL (7-18); eGFR NON AFRICAN AMERICAN 52 mL/min (90-120)
[2016-10-01 14:44] LABS: CKMB 9.2 U/L (0.0-3.6); CREATINE KINASE 59 UL (21-232)
[2016-10-01 14:49] LABS: TROPONIN-I < 0.017 ng/mL (0.000-0.060)
[2016-10-01 17:31] LABS: ANION GAP 23.1 mmol/L (8-16); CALCIUM 9.1 mg/dL (8.5-10.1); CARBON DIOXIDE 17.4 mmol/L (21.0-32.0); CREATININE - SERUM 1.5 mg/dL (0.6-1.3); POTASSIUM - SERUM 4.5 mmol/L (3.5-5.1)
--- NOTE | 2016-10-01 19:11 | NUR ---
REPORT RECEIVED FROM OSCAR SCHWARTZ.
[2016-10-01 20:00] VITALS: BP 120/61
--- NOTE | 2016-10-01 20:00 | NUR ---
ARRIVED TO FLOOR VIA STRETCHER, ACCOMPANIED BY HOSPITAL STAFF AND . ORIENTED TO UNIT AND PLACED ON TELEMETRY 96 SR. ROSE BAG ATTACHED TO UROSTOMY. CALL LIGHT IN REACH. NO NEEDS VOICED AT THIS TIME. WILL CONTINUE TO MONITOR. SEE NURSE ASSESSMENT.
[2016-10-01 23:04] VITALS: Ht 180.3 cm; Wt 91.0 kg
[2016-10-02] VITALS: BP 134/68
[2016-10-02 04:00] VITALS: BP 128/66
--- NOTE | 2016-10-02 07:30 | NUR ---
RECEIVED PT IN BED AAOX4 RESP UNLABORED NAD PT DENIES ANY PAIN OR DISCOMFORT
[2016-10-02 07:54] VITALS: BP 144/78
--- NOTE | 2016-10-02 10:50 | NUR ---
PT TO WASHATERIA ATTENDANT VIA BED NAD NOTED
--- NOTE | 2016-10-02 11:00 | NUR ---
RECEIVED PT BACK TO ROOM 2116 VIA BED VSS PPPX4 DRSG C/D/I TO RT GROIN NO S/S OF BLEEDING
[2016-10-02 12:01] VITALS: BP 118/60
--- NOTE | 2016-10-02 16:00 | NUR ---
REVIEWED DISCHARGE INSTRUCTION WITH PT AND BOTH STATE UNDERSTANDING COPY GIVEN DCD SALINE LOCK TO RT HAND WITH IV CATHETER INTACT SITE FREE OF REDNESS OR EDEMA PT DISCHARGED HOME LEFT UNIT VIA W/C IN STABLE CONDITION WITH ALL PERSONAL BELONGINGS
== END 2016-10-02 15:20 | disposition home or self-care (01) ==
LOC: D.ER 13:38 → OBSVTIME 17:25 → D.M2 17:25
PROVIDERS: Emergency Medicine; ADMIT Internal Medicine Cardiovascular Disease
DX: R07.89 Other chest pain (principal); I25.10 Atherosclerotic heart disease of native coronary artery without angina pectoris; Z95.5 Presence of coronary angioplasty implant and graft; E78.5 Hyperlipidemia, unspecified; I10 Essential (primary) hypertension

== ENCOUNTER 2016-11-23 17:23 | Emergency (ER) | payer MEDICARE, OTHER ==
[2016-11-23 18:05] LABS: BASOPHILS 0.1 % (0-2); EOSINOPHILS 1.8 % (0-7); HEMATOCRIT 43.8 % (42.0-54.0); HEMOGLOBIN 14.8 g/dL (13.5-17.5); IMMATURE GRANULOCYTES 0.3 % (0-5); LYMPHOCYTES 17.6 % (15-50); MCH 34.7 pg (26.0-34.0); MCHC 33.8 g/dL (31.0-37.0); MCV 102.8 fL (80.0-100.0); MEAN PLATELET VOLUME 10.3 fL (7.4-10.4); MONOCYTES 8.3 % (2-11); NEUTROPHILS 71.9 % (40-80); PLATELET COUNT 216 10x3/uL (130-400); RBC 4.26 10x6/uL (4.20-6.10); RDW 14.5 % (11.5-14.5); WBC 7.2 10x3/uL (4.8-10.8)
[2016-11-23 18:40] LABS: ALBUMIN 3.8 g/dL (3.4-5.0); ALKALINE PHOSPHATASE 77 U/L (46-116); ALT (SGPT) 63 U/L (10-68); BILIRUBIN - TOTAL 0.77 mg/dL (0.2-1.3); CALC OSMOLALITY 278 mosm/kg (275-300); CALCIUM 9.1 mg/dL (8.5-10.1); CARBON DIOXIDE 20.4 mmol/L (21.0-32.0); CHLORIDE - SERUM 104 mmol/L (98-107); CREATININE - SERUM 1.4 mg/dL (0.6-1.3); GLUCOSE 109 mg/dL (74-106); PROTEIN - SERUM 7.3 g/dL (6.4-8.2); SODIUM 138 mmol/L (136-145); UREA NITROGEN 18 mg/dL (7-18); eGFR NON AFRICAN AMERICAN 52 mL/min (90-120)
[2016-11-23 18:53] LABS: CHOL - HDL RATIO 3.4 ratio (2.3-4.9); CHOLESTEROL, TOTAL 240 mg/dL (0-200); CKMB 19.4 U/L (0.0-3.6); CREATINE KINASE 63 UL (21-232); HDL CHOLESTEROL 70 mg/dL (32-96); LDL CHOLESTEROL 126 mg/dL (0-100); LDL-HDL RATIO 1.8 ratio (1.5-3.5); TRIGLYCERIDE 221 mg/dL (30-200)
[2016-11-23 18:54] LABS: TROPONIN-I < 0.017 ng/mL (0.000-0.060)
== END 2016-11-23 22:50 | disposition home or self-care (01) ==
LOC: D.ER 17:23
PROVIDERS: Family Medicine
DX: R07.9 Chest pain, unspecified (principal); J44.9 Chronic obstructive pulmonary disease, unspecified; F17.200 Nicotine dependence, unspecified, uncomplicated; Z87.898 Personal history of other specified conditions; R94.31 Abnormal electrocardiogram [ECG] [EKG]

== ENCOUNTER 2016-11-27 19:15 | Emergency (ER) | payer MEDICARE, OTHER ==
[2016-11-27 20:17] LABS: BASOPHILS 0 % (0-2); EOSINOPHILS 1.6 % (0-7); HEMATOCRIT 41.9 % (42.0-54.0); HEMOGLOBIN 14.2 g/dL (13.5-17.5); IMMATURE GRANULOCYTES 0.1 % (0-5); LYMPHOCYTES 15.3 % (15-50); MCH 34.8 pg (26.0-34.0); MCHC 33.9 g/dL (31.0-37.0); MCV 102.7 fL (80.0-100.0); MEAN PLATELET VOLUME 10.3 fL (7.4-10.4); MONOCYTES 8.2 % (2-11); NEUTROPHILS 74.8 % (40-80); PLATELET COUNT 201 10x3/uL (130-400); RBC 4.08 10x6/uL (4.20-6.10); RDW 14.1 % (11.5-14.5); WBC 6.8 10x3/uL (4.8-10.8)
[2016-11-27 21:59] LABS: ALBUMIN 3.9 g/dL (3.4-5.0); ALKALINE PHOSPHATASE 74 U/L (46-116); ALT (SGPT) 63 U/L (10-68); CALC OSMOLALITY 279 mosm/kg (275-300); CALCIUM 9.5 mg/dL (8.5-10.1); CARBON DIOXIDE 19.8 mmol/L (21.0-32.0); CHLORIDE - SERUM 105 mmol/L (98-107); CREATININE - SERUM 1.2 mg/dL (0.6-1.3); GLUCOSE 116 mg/dL (74-106); POTASSIUM - SERUM 4.1 mmol/L (3.5-5.1); PROTEIN - SERUM 7.3 g/dL (6.4-8.2); SODIUM 139 mmol/L (136-145); UREA NITROGEN 15 mg/dL (7-18); eGFR NON AFRICAN AMERICAN 63 mL/min (90-120)
[2016-11-27 22:10] LABS: CHOL - HDL RATIO 3.2 ratio (2.3-4.9); CHOLESTEROL, TOTAL 228 mg/dL (0-200); CKMB 14.9 U/L (0.0-3.6); CREATINE KINASE 58 UL (21-232); HDL CHOLESTEROL 72 mg/dL (32-96); LDL CHOLESTEROL 125 mg/dL (0-100); LDL-HDL RATIO 1.7 ratio (1.5-3.5); PRO BNP 96 pg/mL (0-450); TRIGLYCERIDE 156 mg/dL (30-200); TROPONIN-I < 0.017 ng/mL (0.000-0.060)
== END 2016-11-28 01:11 | disposition home or self-care (01) ==
LOC: D.ER 19:15
PROVIDERS: Emergency Medicine
DX: R07.9 Chest pain, unspecified (principal); I25.10 Atherosclerotic heart disease of native coronary artery without angina pectoris; J44.9 Chronic obstructive pulmonary disease, unspecified; E78.5 Hyperlipidemia, unspecified

== ENCOUNTER 2016-12-24 16:50 | Emergency (ER) | payer MEDICARE, OTHER ==
[2016-12-24 17:29] LABS: BASOPHILS 0.1 % (0-2); EOSINOPHILS 1.5 % (0-7); HEMATOCRIT 38.7 % (42.0-54.0); HEMOGLOBIN 13.3 g/dL (13.5-17.5); IMMATURE GRANULOCYTES 0.3 % (0-5); LYMPHOCYTES 13.1 % (15-50); MCHC 34.4 g/dL (31.0-37.0); MCV 101.8 fL (80.0-100.0); MEAN PLATELET VOLUME 9.9 fL (7.4-10.4); MONOCYTES 8.1 % (2-11); NEUTROPHILS 76.9 % (40-80); PLATELET COUNT 190 10x3/uL (130-400); RDW 14.1 % (11.5-14.5); WBC 7.2 10x3/uL (4.8-10.8)
[2016-12-24 18:03] LABS: ALBUMIN 3.5 g/dL (3.4-5.0); ALKALINE PHOSPHATASE 70 U/L (46-116); ALT (SGPT) 55 U/L (10-68); BILIRUBIN - TOTAL 0.88 mg/dL (0.2-1.3); CALC OSMOLALITY 281 mosm/kg (275-300); CALCIUM 8.5 mg/dL (8.5-10.1); CARBON DIOXIDE 21.2 mmol/L (21.0-32.0); CHLORIDE - SERUM 103 mmol/L (98-107); CREATININE - SERUM 1.2 mg/dL (0.6-1.3); GLUCOSE 110 mg/dL (74-106); POTASSIUM - SERUM 5.1 mmol/L (3.5-5.1); SODIUM 139 mmol/L (136-145); UREA NITROGEN 22 mg/dL (7-18); eGFR NON AFRICAN AMERICAN 63 mL/min (90-120)
[2016-12-24 18:15] LABS: CKMB 1.9 U/L (0.0-3.6); CREATINE KINASE 97 UL (21-232)
[2016-12-24 18:17] LABS: TROPONIN-I < 0.017 ng/mL (0.000-0.060)
[2016-12-24 19:54] LABS: CREATINE KINASE 47 UL (21-232)
[2016-12-24 19:55] LABS: TROPONIN-I < 0.017 ng/mL (0.000-0.060)
== END 2016-12-24 20:59 | disposition home or self-care (01) ==
LOC: D.ER 16:50
PROVIDERS: Emergency Medicine; Nurse Practitioner Family
DX: R07.89 Other chest pain (principal); I25.10 Atherosclerotic heart disease of native coronary artery without angina pectoris; J44.9 Chronic obstructive pulmonary disease, unspecified; I49.3 Ventricular premature depolarization

== ENCOUNTER 2017-01-28 17:17 | Emergency (ER) | payer MEDICARE, OTHER ==
[2017-01-28 18:04] LABS: BASOPHILS 0.1 % (0-2); EOSINOPHILS 2.3 % (0-7); HEMATOCRIT 40.8 % (42.0-54.0); HEMOGLOBIN 13.8 g/dL (13.5-17.5); IMMATURE GRANULOCYTES 0.3 % (0-5); MCH 35.3 pg (26.0-34.0); MCHC 33.8 g/dL (31.0-37.0); MCV 104.3 fL (80.0-100.0); MEAN PLATELET VOLUME 10.5 fL (7.4-10.4); MONOCYTES 7.6 % (2-11); NEUTROPHILS 80.7 % (40-80); PLATELET COUNT 217 10x3/uL (130-400); RBC 3.91 10x6/uL (4.20-6.10); RDW 13.8 % (11.5-14.5); WBC 7.9 10x3/uL (4.8-10.8)
[2017-01-28 18:26] LABS: ALBUMIN 3.2 g/dL (3.4-5.0); ALKALINE PHOSPHATASE 79 U/L (46-116); ALT (SGPT) 49 U/L (10-68); BILIRUBIN - TOTAL 0.42 mg/dL (0.2-1.3); CALC OSMOLALITY 290 mosm/kg (275-300); CALCIUM 8.7 mg/dL (8.5-10.1); CARBON DIOXIDE 22.5 mmol/L (21.0-32.0); CHLORIDE - SERUM 110 mmol/L (98-107); CREATININE - SERUM 1.6 mg/dL (0.6-1.3); GLUCOSE 134 mg/dL (74-106); POTASSIUM - SERUM 4.4 mmol/L (3.5-5.1); PROTEIN - SERUM 6.5 g/dL (6.4-8.2); SODIUM 143 mmol/L (136-145); UREA NITROGEN 25 mg/dL (7-18); eGFR NON AFRICAN AMERICAN 45 mL/min (90-120)
[2017-01-28 18:36] LABS: CKMB 1.3 U/L (0.0-3.6); CREATINE KINASE 54 UL (21-232)
[2017-01-28 18:39] LABS: TROPONIN-I < 0.017 ng/mL (0.000-0.060)
== END 2017-01-28 21:07 | disposition home or self-care (01) ==
LOC: D.ER 17:17
PROVIDERS: Emergency Medicine
DX: R07.89 Other chest pain (principal); I10 Essential (primary) hypertension; R10.9 Unspecified abdominal pain; J44.9 Chronic obstructive pulmonary disease, unspecified

== ENCOUNTER 2017-02-05 15:52 | Emergency (ER) | payer MEDICARE, OTHER ==
[2017-02-05 16:33] LABS: BASOPHILS 0.1 % (0-2); EOSINOPHILS 1.2 % (0-7); HEMATOCRIT 40.6 % (42.0-54.0); HEMOGLOBIN 13.9 g/dL (13.5-17.5); IMMATURE GRANULOCYTES 0.4 % (0-5); LYMPHOCYTES 11.2 % (15-50); MCH 34.7 pg (26.0-34.0); MCHC 34.2 g/dL (31.0-37.0); MCV 101.2 fL (80.0-100.0); MEAN PLATELET VOLUME 10.4 fL (7.4-10.4); MONOCYTES 5.6 % (2-11); NEUTROPHILS 81.5 % (40-80); PLATELET COUNT 223 10x3/uL (130-400); RBC 4.01 10x6/uL (4.20-6.10); RDW 13.4 % (11.5-14.5); WBC 8.2 10x3/uL (4.8-10.8)
[2017-02-05 16:53] LABS: ALBUMIN 3.5 g/dL (3.4-5.0); ALKALINE PHOSPHATASE 75 U/L (46-116); ALT (SGPT) 57 U/L (10-68); BILIRUBIN - TOTAL 0.51 mg/dL (0.2-1.3); CALC OSMOLALITY 280 mosm/kg (275-300); CALCIUM 8.7 mg/dL (8.5-10.1); CARBON DIOXIDE 20.1 mmol/L (21.0-32.0); CHLORIDE - SERUM 105 mmol/L (98-107); CREATININE - SERUM 1.3 mg/dL (0.6-1.3); GLUCOSE 144 mg/dL (74-106); PROTEIN - SERUM 6.7 g/dL (6.4-8.2); SODIUM 138 mmol/L (136-145); UREA NITROGEN 19 mg/dL (7-18); eGFR NON AFRICAN AMERICAN 57 mL/min (90-120)
[2017-02-05 17:00] LABS: CHOL - HDL RATIO 2.9 ratio (2.3-4.9); CHOLESTEROL, TOTAL 213 mg/dL (0-200); CKMB 1.8 U/L (0.0-3.6); CREATINE KINASE 58 UL (21-232); HDL CHOLESTEROL 73 mg/dL (32-96); LDL CHOLESTEROL 110 mg/dL (0-100); LDL-HDL RATIO 1.5 ratio (1.5-3.5); TRIGLYCERIDE 154 mg/dL (30-200)
[2017-02-05 17:01] LABS: TROPONIN-I < 0.017 ng/mL (0.000-0.060)
[2017-02-05 20:33] LABS: CKMB 1.5 U/L (0.0-3.6); CREATINE KINASE 56 UL (21-232)
[2017-02-05 20:34] LABS: TROPONIN-I < 0.017 ng/mL (0.000-0.060)
== END 2017-02-05 21:19 | disposition home or self-care (01) ==
LOC: D.ER 15:52
PROVIDERS: Family Medicine
DX: R07.89 Other chest pain (principal); J44.9 Chronic obstructive pulmonary disease, unspecified

== ENCOUNTER 2017-02-09 19:10 | Emergency (ER) | payer MEDICARE, OTHER | END 2017-02-09 21:30 | disposition home or self-care (01) | LOC: D.ER 19:10 | DX: R07.89 Other chest pain (principal); F41.9 Anxiety disorder, unspecified; J44.9 Chronic obstructive pulmonary disease, unspecified ==

== ENCOUNTER 2017-02-22 00:02 | Emergency (ER) | payer MEDICARE, OTHER ==
[2017-02-22 00:44] LABS: BASOPHILS 0.1 % (0-2); EOSINOPHILS 1.1 % (0-7); HEMATOCRIT 42.6 % (42.0-54.0); HEMOGLOBIN 14.6 g/dL (13.5-17.5); IMMATURE GRANULOCYTES 0.2 % (0-5); LYMPHOCYTES 10.5 % (15-50); MCH 35.2 pg (26.0-34.0); MCHC 34.3 g/dL (31.0-37.0); MCV 102.7 fL (80.0-100.0); MEAN PLATELET VOLUME 10.1 fL (7.4-10.4); NEUTROPHILS 82.1 % (40-80); PLATELET COUNT 242 10x3/uL (130-400); RBC 4.15 10x6/uL (4.20-6.10); RDW 13.7 % (11.5-14.5); WBC 8.8 10x3/uL (4.8-10.8)
[2017-02-22 01:03] LABS: ALBUMIN 3.9 g/dL (3.4-5.0); ANION GAP 18.1 mmol/L (8-16); BILIRUBIN - TOTAL 0.6 mg/dL (0.2-1.3); CALCIUM 9.1 mg/dL (8.5-10.1); CARBON DIOXIDE 23.1 mmol/L (21.0-32.0); CREATININE - SERUM 1.2 mg/dL (0.6-1.3); POTASSIUM - SERUM 4.2 mmol/L (3.5-5.1); PROTEIN - SERUM 7.5 g/dL (6.4-8.2)
[2017-02-22 01:11] LABS: APPEARANCE HAZY (CLEAR); BACTERIA MANY /hpf (NONE SEEN); BILIRUBIN NEGATIVE (NEGATIVE); COLOR YELLOW (YELLOW); EPITHELIAL CELLS 0-5 /hpf (0-5); GLUCOSE NEGATIVE (NEGATIVE); KETONE NEGATIVE (NEGATIVE); NITRITE NEGATIVE (NEGATIVE); PROTEIN TRACE mg/dL (NEGATIVE); RED CELLS - URINE 0-5 /hpf (0-5); SPECIFIC GRAVITY 1.015 (1.005-1.020); UROBILINOGEN NORMAL (NORMAL); WHITE CELLS - URINE 25-50 /hpf (0-5)
== END 2017-02-22 04:55 | disposition home or self-care (01) ==
LOC: D.ER 00:02
PROVIDERS: Family Medicine
DX: N10 Acute pyelonephritis (principal); J44.9 Chronic obstructive pulmonary disease, unspecified

== ENCOUNTER 2017-03-03 21:09 | Inpatient (IN) | payer MEDICARE, OTHER ==
[2017-03-03 21:45] LABS: BASOPHILS 0.1 % (0-2); EOSINOPHILS 1.3 % (0-7); HEMOGLOBIN 14.1 g/dL (13.5-17.5); IMMATURE GRANULOCYTES 0.6 % (0-5); MCHC 34.4 g/dL (31.0-37.0); MCV 101.7 fL (80.0-100.0); MEAN PLATELET VOLUME 9.9 fL (7.4-10.4); MONOCYTES 8.6 % (2-11); NEUTROPHILS 78.4 % (40-80); PLATELET COUNT 246 10x3/uL (130-400); RBC 4.03 10x6/uL (4.20-6.10); RDW 13.6 % (11.5-14.5); WBC 9.8 10x3/uL (4.8-10.8)
[2017-03-03 22:04] LABS: ALBUMIN 3.2 g/dL (3.4-5.0); ALKALINE PHOSPHATASE 81 U/L (46-116); ALT (SGPT) 41 U/L (10-68); BILIRUBIN - TOTAL 0.34 mg/dL (0.2-1.3); CALC OSMOLALITY 275 mosm/kg (275-300); CALCIUM 8.7 mg/dL (8.5-10.1); CHLORIDE - SERUM 103 mmol/L (98-107); CREATININE - SERUM 1.5 mg/dL (0.6-1.3); GLUCOSE 112 mg/dL (74-106); POTASSIUM - SERUM 3.9 mmol/L (3.5-5.1); PROTEIN - SERUM 6.8 g/dL (6.4-8.2); SODIUM 136 mmol/L (136-145); UREA NITROGEN 21 mg/dL (7-18); eGFR NON AFRICAN AMERICAN 48 mL/min (90-120)
[2017-03-03 22:29] LABS: TROPONIN-I < 0.017 ng/mL (0.000-0.060)
[2017-03-03 22:49] LABS: UDS - AMPHET NEGATIVE QUAL (NEGATIVE); UDS - BARB POSITIVE QUAL (NEGATIVE); UDS - BENZO NEGATIVE QUAL (NEGATIVE); UDS - COCAINE NEGATIVE QUAL (NEGATIVE); UDS - OPIATE POSITIVE QUAL (NEGATIVE); UDS - PCP NEGATIVE QUAL (NEGATIVE); UDS - THC NEGATIVE QUAL (NEGATIVE)
[2017-03-03 22:54] LABS: APPEARANCE CLEAR (CLEAR); BILIRUBIN NEGATIVE (NEGATIVE); COLOR YELLOW (YELLOW); GLUCOSE NEGATIVE (NEGATIVE); KETONE NEGATIVE (NEGATIVE); NITRITE NEGATIVE (NEGATIVE); PROTEIN TRACE mg/dL (NEGATIVE); UROBILINOGEN NORMAL (NORMAL)
[2017-03-03 22:55] LABS: BACTERIA FEW /hpf (NONE SEEN); RED CELLS - URINE 0-5 /hpf (0-5); WHITE CELLS - URINE 0-5 /hpf (0-5)
[2017-03-04] VITALS (8 sets, daily range): BP systolic 109–165; BP diastolic 63–96; BMI 27.9
[2017-03-04] MEDS ORDERED: ZOFRAN4 MG PO (02:08)
[2017-03-04] MEDS ORDERED: ZOLOFT50 MG PO (02:10)
[2017-03-04] MEDS ORDERED: MYSOLINE 50 MG50 MG PO (02:11)
[2017-03-04 05:04] LABS: CKMB 1.2 U/L (0.0-3.6); CREATINE KINASE 55 UL (21-232); TROPONIN-I < 0.017 ng/mL (0.000-0.060)
--- NOTE | 2017-03-04 07:30 | NUR ---
RECEIVED PT IN BED EYES CLOSED RESP UNLABORED NAD NOTED AT BEDSIDE
[2017-03-04 09:57] LABS: CKMB 1.3 U/L (0.0-3.6); CREATINE KINASE 59 UL (21-232)
[2017-03-04 09:59] LABS: TROPONIN-I < 0.017 ng/mL (0.000-0.060)
--- NOTE | 2017-03-04 14:50 | NUR ---
RESTING QUIETLY NAD NOTED
[2017-03-04 15:58] LABS: CKMB 1.2 U/L (0.0-3.6); CREATINE KINASE 61 UL (21-232); TROPONIN-I < 0.017 ng/mL (0.000-0.060)
--- NOTE | 2017-03-04 19:31 | NUR ---
RESUMED CARE OF PT, LYING IN BED RESPIRATIONS EVEN AND UNLABORED ON ROOMA IR. 77 SR ON TELEMETRY. LEFT AC INFUSING NS @ 100. RIGHT UROSTOMY ATTACHED TO ROSE BAG HANGING TO GRAVITY. AT BEDSIDE, PLAN OF CARE DISCUSSED. CALL LIGHT IN REACH. WILL CONTINUE TO MONITOR. SEE NURSE ASSESSMENT.
[2017-03-05] VITALS (8 sets, daily range): BP systolic 108–167; BP diastolic 55–101
[2017-03-05 05:32] LABS: BASOPHILS 0.3 % (0-2); EOSINOPHILS 2.6 % (0-7); HEMATOCRIT 33.2 % (42.0-54.0); HEMOGLOBIN 11.4 g/dL (13.5-17.5); IMMATURE GRANULOCYTES 0.4 % (0-5); MCH 34.7 pg (26.0-34.0); MCHC 34.3 g/dL (31.0-37.0); MCV 100.9 fL (80.0-100.0); MEAN PLATELET VOLUME 9.5 fL (7.4-10.4); MONOCYTES 9.8 % (2-11); NEUTROPHILS 72.9 % (40-80); RBC 3.29 10x6/uL (4.20-6.10); RDW 13.8 % (11.5-14.5)
[2017-03-05 05:43] LABS: PLATELET COUNT 182 10x3/uL (130-400); WBC 6.9 10x3/uL (4.8-10.8)
[2017-03-05 05:59] LABS: CALCIUM 7.5 mg/dL (8.5-10.1); CARBON DIOXIDE 22.3 mmol/L (21.0-32.0)
[2017-03-05 06:10] LABS: CREATININE - SERUM 1.1 mg/dL (0.6-1.3); POTASSIUM - SERUM 3.3 mmol/L (3.5-5.1)
--- NOTE | 2017-03-05 07:30 | NUR ---
ASSESSMENT COMPLETED. TELEMERTY SHOWS SR 95. DENIES ANY DIZZINES. PT HAS A LEFT CLOSTOMY AND A RIGHT UROSTOMY. ALERT AND ORIENTED. AT BEDSIDE. ROSE CATH TO BEDSIDE DRAINAGE. NEURO CHECKS NEGATIVE. NPO FOR CTA
--- NOTE | 2017-03-05 09:09 | NUR ---
RESTS IN BED WITHOUT NEEDS VOICED. IV PATENT. CALL LIGHT IN REACH. WILL CONT. PLAN OF CARE.
--- NOTE | 2017-03-05 12:10 | NUR ---
HOB UP FOR DIET. DENIES ANY NEEDS. FAMILY AT BEDSIDE. TELEMERTY SHOWS SR
--- NOTE | 2017-03-05 16:52 | NUR ---
HOB UP. DENIES ANY NEEDS. FAMILY AT BEDSIDE TELEMERTY SHOWSSR.
--- NOTE | 2017-03-05 19:45 | NUR ---
PT RESTING IN BED, AT BEDSIDE. PT AAOX4. NS INFUSING AT 75 TO LEFT AC. PT DENIES ANY NEEDS AT THIS TIME. NO S/S OF DISTRESS. BED LOW AND CALL LIGHT IN REACH. WILL CPOC
--- NOTE | 2017-03-05 21:00 | NUR ---
ORTHOSTATIC BP SUPINE 167/72 PR83 TEMP 99.7 RR18 96% SITTING 127/101 SD 96 STANDING 130/69 SD 111 PT HAS NO S/S OF DISTRESS. DENIES ANY NEEDS. WILL CPOC
--- NOTE | 2017-03-05 21:04 | NUR ---
PT IS AAO X4. STATES HE HAS A SMALL CONSTANT NAGING ACHING PAIN THAT IS SLIGHTLY PRESSURE IN LOWER CHEST. PT STATES HE HAS HAD THIS PAIN BEFORE AND IT WILL PROBALY GO AWAY WITH A PAIN PILL. PT HAS NO S/S OF DISTRESS. DENIES ANY NEEDS OR CONCERNS. WILL CPOC
[2017-03-06] VITALS: BP 160/81
--- NOTE | 2017-03-06 03:40 | NUR ---
PT ASLEEP. RESPIRATIONS EVEN AND UNLABORED. RR 18. BED LOW AND CALL LIGHT IN REACH. NO S/S OF DISTRESS. NS INFUSING TO LEFT AC @ 75. WILL CPOC
[2017-03-06 04:00] VITALS: BP 147/69
[2017-03-06 05:34] LABS: BASOPHILS 0.1 % (0-2); EOSINOPHILS 4.2 % (0-7); HEMATOCRIT 33.5 % (42.0-54.0); HEMOGLOBIN 11.7 g/dL (13.5-17.5); IMMATURE GRANULOCYTES 0.3 % (0-5); LYMPHOCYTES 12.7 % (15-50); MCH 35.2 pg (26.0-34.0); MCHC 34.9 g/dL (31.0-37.0); MCV 100.9 fL (80.0-100.0); MEAN PLATELET VOLUME 9.6 fL (7.4-10.4); MONOCYTES 9.1 % (2-11); NEUTROPHILS 73.6 % (40-80); PLATELET COUNT 175 10x3/uL (130-400); RBC 3.32 10x6/uL (4.20-6.10); WBC 7.1 10x3/uL (4.8-10.8)
[2017-03-06 05:55] LABS: ALBUMIN 2.6 g/dL (3.4-5.0); ALKALINE PHOSPHATASE 57 U/L (46-116); ALT (SGPT) 26 U/L (10-68); BILIRUBIN - TOTAL 0.43 mg/dL (0.2-1.3); CALC OSMOLALITY 281 mosm/kg (275-300); CALCIUM 7.5 mg/dL (8.5-10.1); CARBON DIOXIDE 21.9 mmol/L (21.0-32.0); CHLORIDE - SERUM 111 mmol/L (98-107); CREATININE - SERUM 0.9 mg/dL (0.6-1.3); GLUCOSE 99 mg/dL (74-106); POTASSIUM - SERUM 3.3 mmol/L (3.5-5.1); PROTEIN - SERUM 5.4 g/dL (6.4-8.2); SODIUM 142 mmol/L (136-145); UREA NITROGEN 11 mg/dL (7-18); eGFR NON AFRICAN AMERICAN 87 mL/min (90-120)
--- NOTE | 2017-03-06 06:39 | NUR ---
PT SITTING UP IN BED HOB 60 DRINKING APPLE JUICE AT BEDSIDE. PT TOOK MORNING MEDS WITHOUT COMPLICATIONS. PT DENIES ANY NEEDS. NO S/S OF DISTRESS. WILL CPOC
--- NOTE | 2017-03-06 07:30 | NUR ---
AM RUNDING MADE WITH PATIENT LAYING ON RIGHT SIDE, AT BEDSIDE. DENIES ANY NEEDS AT PRESENT TIME. LEFT AC SEEN WITH NS INFUSING AT 75 CC/HR. ON HEART MONITOR SHOWING SR, HR 75. LEFT COLOSTOMY SITE SEEN WITH SLIGHT BULGING (PATIENT STATES HERNIA). RIGHT UROSTOMY SITE SEEN. BILATERAL SCD'S NOT IN USE AT THIS TIME. WILL MONITOR.
[2017-03-06] MEDS ORDERED: AMBIEN10 MG PO (07:52)
[2017-03-06] MEDS ORDERED: K-DUR20 MEQ PO (07:54)
[2017-03-06] MEDS ORDERED: CARAFATE1 G/10 ML PO (07:54)
[2017-03-06 08:02] VITALS: BP 137/65
--- NOTE | 2017-03-06 10:44 | NUR ---
SALINE LOCK REMOVED WITH CATH TIP INTACT. VERBAL AND WRITTEN DISCHARGE INSTRUCTIONS GIVEN TO PATIENT AND . WILL DISCHARGE VIA WHEELCHAIR WHEN PATIENT IS DRESSED.
--- NOTE | 2017-03-06 10:54 | NUR ---
DISCHARGED HOME VIA WHEELCHAIR.
--- NOTE | 2017-03-06 11:39 | NUR ---
Patient Name: MAXWELL DANIELSON Admission Status: ER Accout number: [id number] Admission Date: 03-04-2017 : 1940 Admission Diagnosis: Attending: WALT GRIMALDO Current LOS: 2 Anticipated DC Date: 03-06-2017 Planned Disposition: Home Primary Insurance: MEDICARE A & B Discharge Planning Comments: * Is the patient Alert and Oriented? Yes 0 * How many steps to enter\exit or inside your home? 6 0 * PCP DR. GRIMALDO 0 * Pharmacy [facility] ON [address] 0 * Preadmission Environment Home with Family 0 * ADLs Independent 0 * Equipment Ostomy Supplies Oxygen 0 * Other Equipment OXYGEN AT NIGHT ONLY [facility] - MEDICAL EQUIPMENT PROVIDER PREFERENCE 0 * List name and contact numbers for known caregivers / representatives who currently or will assist patient after discharge: ELLEN MOLNIA, SPOUSE, 0 * Community resources currently utilized None 0 * Please name any agencies selected above. NONE 0 * Additional services required to return to the preadmission environment? No 0 * Can the patient safely return to the preadmission environment? Yes 0 * Has this patient been hospitalized within the prior 30 days at any hospital? No 0 CM MET WITH PT IN ROOM TO DISCUSS DISCHARGE PLANNING AND NEEDS. PT REPORTS LIVING AT HOME INDEPENDENTLY WITH SPOUSE. PT HAS NIGHTTIME OXYGEN AT HOME AND ALSO UTILIZES OSTOMY SUPPLIES, PT'S PROVIDER IS [employer]. PT HAS NO OUTSIDE SERVICES ASSISTING IN THE HOME. CM DISCUSSED AVAILABILITY OF HOME HEALTH, REHAB SERVICES AND MEDICAL EQUIPMENT. PT DENIES DISCHARGE NEEDS, REPORTS HIS HERE TO PICK HIM UP FOR DISCHARGE HOME. PT'S SPOUSE COMPLAINED THAT PT'S BED IS VARINDER AND DID NOT APPEAR TO BE CLEANED PRIOR TO PT'S ADMISSION. CM NOTIFIED ACCOUNTS RECEIVABLE SPECIALIST WHO INFORMED HOUSKEEPER. IMPORTANT MESSAGE FROM MEDICARE PROVIDED AND EXPLAINED. Glazing Superintendent: Jose Miguel Escalera
--- NOTE | 2017-03-18 10:07 | EC ---
PATIENT:MAXWELL DANIELSON DATE OF SERVICE: 03/04/17 SEX: M MEDICAL RECORD: [id number] DATE OF : [birth year] LOCATION:D. D.212 AGE OF PATIENT: 77 ADMISSION DATE: 03/04/17 REFERRING PHYSICIAN: INTERPRETING PHYSICIAN: TAYLOR WHELAN MD ECHOCARDIOGRAM REPORT ECHO CHARGES 4 ECHO COMPLETE CLINICAL DIAGNOSIS: DIZZINESS ECHOCARDIOGRAPHIC MEASUREMENTS (adult normal given) AC root (d.<3.7cm) 3.5 cm LV Septum d (<1.2 cm> 1.4 cm Valve Excursion 2.0 cm LV Septum (systole) 1.8 cm Left Atria (s.<4.0cm> 4.2 cm LVPW d(<1.2cm) 1.3 cm RV (d.<2.3cm) 2.5 cm LVPW (sytole) 2.2 cm LV diastole(<5.6CM) 4.9 cm MV E-F(>70mm/sec) cm LV systole 2.3 cm LVOT Diameter 2.0 cm MV exc.(>10mm) cm Est.ejection fraction (50-75%) % Pericardial Effusion N DOPPLER: LVIT cm/sec A 80.0 cm/sec E 48.0 cm/sec LA cm/sec RVSP 23.2 mmHg LVOT 103 cm/sec AOP1/2T m/s Asc. Ao 137 cm/sec RVOT 66.0 cm/sec RA cm/sec PA 83.0 cm/sec AV Gradient Peak 7.5 mmHg AV Mean 3.4 mmHg AV Area 2.2 cm MV Gradient Peak 3.4 mmHg MV Mean 1.4 mmHg MV Area cm COMMENTS: Cut Out Stitcher: Yaa ERICKSONOE Full Stack Web Developer: 4 Dr. Whelan TAPE# PACS DATE OF SERVICE: 03/04/2017 PROCEDURE: Transthoracic echocardiogram. FINDINGS: 1. There is moderate concentric left ventricular hypertrophy. There is preserved LV systolic function with ejection fraction of 60% to 65%. There is no evidence of regional wall motion abnormalities. The inflow characteristics across the left ventricle is consistent with diastolic dysfunction. 2. The left atrium is mildly dilated. ECHOCARDIOGRAM REPORT [id number] MAXWELL DANIELSON 3. The right ventricle is normal size, but with evidence of mild right ventricular hypertrophy. 4. The aortic valve is normal. 5. The mitral valve is structurally normal with mild mitral regurgitation. 6. The tricuspid valve has trace tricuspid regurgitation, normal right ventricular systolic pressures. 7. The right atrium and right ventricle are normal size and normal function. 8. Pulmonary valve is normal. 9. The pericardium appears to be normal. CONCLUSIONS: The patient has evidence of mild hypertensive heart disease, but with otherwise preserved systolic function and no gross enlargements of the remaining chambers. TRANSINT:[id number] Voice Confirmation ID: [id number] DOCUMENT ID: [id number] 03/16/2017 Edited to correct date of service, dm. TAYLOR WHELAN MD at 1007 CC: [id number] DICTATION DATE: 03/05/17 0744 PULLEY MAN: 03/05/17 0759 DIS IN 03/06/17 [facility] [address] [place] [address]
== END 2017-03-06 10:55 | disposition home or self-care (01) | DRG 312 ==
LOC: D.ER 21:09 → D.M2 03-04 00:17
PROVIDERS: Family Medicine; Nurse Practitioner Family; ADMIT Family Medicine
DX: I95.1 Orthostatic hypotension (principal); I10 Essential (primary) hypertension; E86.0 Dehydration; J44.9 Chronic obstructive pulmonary disease, unspecified; R68.81 Early satiety; I25.10 Atherosclerotic heart disease of native coronary artery without angina pectoris; Z95.5 Presence of coronary angioplasty implant and graft; Z87.891 Personal history of nicotine dependence; Z85.46 Personal history of malignant neoplasm of prostate; Z85.51 Personal history of malignant neoplasm of bladder; Z85.118 Personal history of other malignant neoplasm of bronchus and lung

== ENCOUNTER 2017-04-09 20:58 | Emergency (ER) | payer MEDICARE, OTHER ==
[2017-03-04 10:31] VITALS: BMI 27.9
[~2017-04-09 20:58] MED LIST changes: +K-DUR20 MEQ PO; +MYSOLINE 50 MG50 MG PO; +ZOFRAN4 MG PO; +ZOLOFT50 MG PO
[2017-04-09 21:23] LABS: BASOPHILS 0.2 % (0-2); EOSINOPHILS 1.8 % (0-7); HEMATOCRIT 37.6 % (42.0-54.0); HEMOGLOBIN 12.7 g/dL (13.5-17.5); IMMATURE GRANULOCYTES 0.2 % (0-5); LYMPHOCYTES 15.9 % (15-50); MCH 35.3 pg (26.0-34.0); MCHC 33.8 g/dL (31.0-37.0); MCV 104.4 fL (80.0-100.0); MEAN PLATELET VOLUME 9.6 fL (7.4-10.4); MONOCYTES 8.8 % (2-11); NEUTROPHILS 73.1 % (40-80); RDW 14.7 % (11.5-14.5); WBC 6.1 10x3/uL (4.8-10.8)
[2017-04-09 21:24] LABS: PLATELET COUNT 223 10x3/uL (130-400)
[2017-04-09 21:32] LABS: ALBUMIN 3.7 g/dL (3.4-5.0); ALKALINE PHOSPHATASE 88 U/L (46-116); ALT (SGPT) 36 U/L (10-68); BILIRUBIN - TOTAL 0.27 mg/dL (0.2-1.3); CALC OSMOLALITY 276 mosm/kg (275-300); CALCIUM 8.8 mg/dL (8.5-10.1); CARBON DIOXIDE 19.7 mmol/L (21.0-32.0); CHLORIDE - SERUM 104 mmol/L (98-107); CREATININE - SERUM 1.3 mg/dL (0.6-1.3); GLUCOSE 102 mg/dL (74-106); POTASSIUM - SERUM 4.1 mmol/L (3.5-5.1); PROTEIN - SERUM 7.2 g/dL (6.4-8.2); SODIUM 138 mmol/L (136-145); UREA NITROGEN 14 mg/dL (7-18); eGFR NON AFRICAN AMERICAN 57 mL/min (90-120)
[2017-04-09 21:43] LABS: CHOL - HDL RATIO 2.2 ratio (2.3-4.9); CHOLESTEROL, TOTAL 212 mg/dL (0-200); CKMB 2.8 U/L (0.0-3.6); CREATINE KINASE 57 UL (21-232); HDL CHOLESTEROL 95 mg/dL (32-96); LDL CHOLESTEROL 81 mg/dL (0-100); LDL-HDL RATIO 0.9 ratio (1.5-3.5); TRIGLYCERIDE 180 mg/dL (30-200)
[2017-04-09 21:45] LABS: TROPONIN-I < 0.017 ng/mL (0.000-0.060)
== END 2017-04-09 23:00 | disposition home or self-care (01) ==
LOC: D.ER 20:58
PROVIDERS: Emergency Medicine
DX: R07.89 Other chest pain (principal); I10 Essential (primary) hypertension; I49.3 Ventricular premature depolarization

== ENCOUNTER 2017-05-23 23:17 | Emergency (ER) | payer MEDICARE, OTHER ==
[2017-03-04 10:31] VITALS: BMI 27.9
[2017-05-23 23:40] LABS: BASOPHILS 0.2 % (0-2); EOSINOPHILS 4.9 % (0-7); HEMATOCRIT 39.1 % (42.0-54.0); HEMOGLOBIN 13.2 g/dL (13.5-17.5); IMMATURE GRANULOCYTES 0.3 % (0-5); LYMPHOCYTES 15.5 % (15-50); MCHC 33.8 g/dL (31.0-37.0); MCV 106.5 fL (80.0-100.0); MEAN PLATELET VOLUME 10.2 fL (7.4-10.4); MONOCYTES 9.2 % (2-11); NEUTROPHILS 69.9 % (40-80); PLATELET COUNT 206 10x3/uL (130-400); RBC 3.67 10x6/uL (4.20-6.10); RDW 14.4 % (11.5-14.5); WBC 6.1 10x3/uL (4.8-10.8)
[2017-05-23 23:57] LABS: ALBUMIN 3.6 g/dL (3.4-5.0); ALKALINE PHOSPHATASE 92 U/L (46-116); ALT (SGPT) 82 U/L (10-68); BILIRUBIN - TOTAL 0.35 mg/dL (0.2-1.3); CALC OSMOLALITY 281 mosm/kg (275-300); CARBON DIOXIDE 20.4 mmol/L (21.0-32.0); CHLORIDE - SERUM 105 mmol/L (98-107); CREATININE - SERUM 1.1 mg/dL (0.6-1.3); GLUCOSE 118 mg/dL (74-106); POTASSIUM - SERUM 3.8 mmol/L (3.5-5.1); PROTEIN - SERUM 6.8 g/dL (6.4-8.2); SODIUM 139 mmol/L (136-145); UREA NITROGEN 22 mg/dL (7-18); eGFR NON AFRICAN AMERICAN 69 mL/min (90-120)
[2017-05-24 00:08] LABS: CHOL - HDL RATIO 2.4 ratio (2.3-4.9); CHOLESTEROL, TOTAL 205 mg/dL (0-200); CREATINE KINASE 45 UL (21-232); HDL CHOLESTEROL 85 mg/dL (32-96); LDL CHOLESTEROL 92 mg/dL (0-100); LDL-HDL RATIO 1.1 ratio (1.5-3.5); TRIGLYCERIDE 143 mg/dL (30-200); TROPONIN-I < 0.017 ng/mL (0.000-0.060)
== END 2017-05-24 01:20 | disposition home or self-care (01) ==
LOC: D.ER 23:17
PROVIDERS: Emergency Medicine
DX: I20.8 Other forms of angina pectoris (principal); I10 Essential (primary) hypertension; Z93.3 Colostomy status; J44.9 Chronic obstructive pulmonary disease, unspecified; I48.92 Unspecified atrial flutter

== ENCOUNTER → 2017-06-02 08:27 | Outpatient (CLI) | payer MEDICARE, OTHER ==
[2017-03-04 10:31] VITALS: BMI 27.9
[~2017-06-02 08:27] MED LIST changes: +CYCLOBENZAPRINE10 MG PO
== END | disposition home or self-care (01) ==
LOC: D.US 08:27
DX: R10.11 Right upper quadrant pain (principal)

== ENCOUNTER → 2017-06-08 12:28 | Outpatient (CLI) | payer MEDICARE, OTHER ==
[2017-03-04 10:31] VITALS: BMI 27.9
== END | disposition home or self-care (01) ==
LOC: D.NM 12:28
DX: R10.13 Epigastric pain (principal)

== ENCOUNTER 2017-06-10 20:33 | Observation (INO) | payer MEDICARE, OTHER ==
[~2017-06-10] VITALS: Ht 180.3 cm; Wt 90.1 kg
--- NOTE | ~2017-06-10 | EC ---
PATIENT:MAXWELL DANIELSON DATE OF SERVICE: 06/11/17 SEX: M MEDICAL RECORD: [id number] DATE OF : 42 LOCATION:D.M2 D.212 AGE OF PATIENT: 77 ADMISSION DATE: 06/11/17 REFERRING PHYSICIAN: INTERPRETING PHYSICIAN: TAYLOR WHELAN MD ECHOCARDIOGRAM REPORT ECHO CHARGES 4 ECHO COMPLETE CLINICAL DIAGNOSIS: CHEST PAIN ECHOCARDIOGRAPHIC MEASUREMENTS (adult normal given) AC root (d.<3.7cm) 4.2 cm LV Septum d (<1.2 cm> 1.5 cm Valve Excursion 2.4 cm LV Septum (systole) 1.6 cm Left Atria (s.<4.0cm> 3.9 cm LVPW d(<1.2cm) 1.2 cm RV (d.<2.3cm) 4.1 cm LVPW (sytole) 1.5 cm LV diastole(<5.6CM) 4.4 cm MV E-F(>70mm/sec) cm LV systole 2.9 cm LVOT Diameter 2.0 cm MV exc.(>10mm) 1.8 cm Est.ejection fraction (50-75%) % Pericardial Effusion N DOPPLER: LVIT cm/sec A 76.0 cm/sec E 55.0 cm/sec LA cm/sec RVSP 25 mmHg LVOT 64 cm/sec AOP1/2T m/s Asc. Ao 109 cm/sec RVOT cm/sec RA cm/sec PA cm/sec AV Gradient Peak 4.79 mmHg AV Mean 2.21 mmHg AV Area 2.6 cm MV Gradient Peak 4.02 mmHg MV Mean 1.05 mmHg MV Area cm COMMENTS: Civil Engineer Helper: 2 STEVE PARDO Personal Development Mentor: 4 Dr. Whelan TAPE# PACS DATE OF SERVICE: 06/11/2017 PROCEDURE: Transthoracic echocardiogram. FINDINGS: 1. The left ventricle shows evidence of mild left ventricular hypertrophy, inflow characteristics consistent with diastolic dysfunction. There is no obvious regional wall motion abnormalities. The ejection fraction is 60% to 65%. 2. Left atrium appears to be normal size, normal function. ECHOCARDIOGRAM REPORT [id number] MAXWELL DANIELSON 3. The aortic valve appears to be normal structurally, normal functionally. 4. The mitral valve is normal. 5. The tricuspid valve is normal. 6. Pulmonic valve is normal. 7. The right atrium is mildly dilated. 8. The right ventricle is upper limits of normal to mildly dilated, IVC is seen to be normal size and collapses with inspiration. CONCLUSIONS: The patient with evidence of mild hypertensive heart disease, otherwise fairly normal echocardiogram. TRANSINT:[id number] Voice Confirmation ID: [id number] DOCUMENT ID: [id number] 06/19/2017 Edited to correct date of service, dm. TAYLOR WHELAN MD at 1522 CC: [id number] DICTATION DATE: 06/12/17 0701 WEATHERSEAL TECHNICIAN: 06/12/17 1338 DIS IN 06/12/17 [facility] [address] [place] [address]
--- NOTE | ~2017-06-10 | ST ---
PATIENT:MAXWELL DANIELSON MEDICAL RECORD: [id number] SEX: M [facility] ORDER #: ADMISSION DATE: 06/11/17 AGE OF PATIENT: 77 REFERRING PHYSICIAN: INTERPRETING PHYSICIAN: TAYLOR WHELAN MD DATE OF SERVICE: 06/11/2017 NUCLEAR MEDICINE REPORT PROCEDURE: The patient was brought into the nuclear imaging facility placed in the supine position on the nuclear table. The patient had a standard sestamibi protocol delivered without difficulty, sequelae, complications, or symptoms. The patient had the rest and stress imaging performed on the same day with sestamibi. There was 12.2 mCi of sestamibi injected at rest and there was 31.2 mCi of sestamibi injected at stress, again without difficulty. SPECT imaging revealed no evidence of ischemia and there was good uptake. Gated imaging revealed no regional wall motion abnormalities. Good thickening, ejection fraction of 60%. IMPRESSION: The patient has no evidence of ischemia or infarction with normal ejection fraction. TRANSINT:[id number] Voice Confirmation ID: [id number] DOCUMENT ID: [id number] 06/19/2017 Edited to correct date of service, dmm. TAYLOR WHELAN MD at 1522 CC: [id number] DICTATION DATE: 06/12/17 0657 PROVIDER RELATIONS ADVOCATE: 06/12/17 2133 DIS IN 06/12/17 [place] [address] [place] [address]
[~2017-06-10 20:33] MED LIST changes: -CYCLOBENZAPRINE10 MG PO
[2017-06-10 21:02] LABS: BASOPHILS 0.1 % (0-2); EOSINOPHILS 3.9 % (0-7); HEMATOCRIT 41.3 % (42.0-54.0); HEMOGLOBIN 13.6 g/dL (13.5-17.5); IMMATURE GRANULOCYTES 0.4 % (0-5); LYMPHOCYTES 17.7 % (15-50); MCH 36.1 pg (26.0-34.0); MCHC 32.9 g/dL (31.0-37.0); MCV 109.5 fL (80.0-100.0); MEAN PLATELET VOLUME 10.5 fL (7.4-10.4); MONOCYTES 9.7 % (2-11); NEUTROPHILS 68.2 % (40-80); PLATELET COUNT 235 10x3/uL (130-400); RBC 3.77 10x6/uL (4.20-6.10); RDW 14.3 % (11.5-14.5); WBC 8.1 10x3/uL (4.8-10.8)
[2017-06-10 21:08] LABS: APTT 22.4 SECONDS (22.8-39.4); INR 0.92 (0.85-1.17)
[2017-06-10 21:10] LABS: D-DIMER-QUANTITATIVE 3.22 ug/mLFEU (0.20-0.54)
[2017-06-10 21:16] LABS: ALBUMIN 3.6 g/dL (3.4-5.0); ALKALINE PHOSPHATASE 86 U/L (46-116); ALT (SGPT) 57 U/L (10-68); BILIRUBIN - TOTAL 0.33 mg/dL (0.2-1.3); CALC OSMOLALITY 282 mosm/kg (275-300); CALCIUM 8.9 mg/dL (8.5-10.1); CARBON DIOXIDE 21.6 mmol/L (21.0-32.0); CHLORIDE - SERUM 105 mmol/L (98-107); CREATININE - SERUM 1.3 mg/dL (0.6-1.3); GLUCOSE 117 mg/dL (74-106); POTASSIUM - SERUM 4.2 mmol/L (3.5-5.1); PROTEIN - SERUM 7.1 g/dL (6.4-8.2); SODIUM 140 mmol/L (136-145); UREA NITROGEN 22 mg/dL (7-18); eGFR NON AFRICAN AMERICAN 57 mL/min (90-120)
[2017-06-10 21:29] LABS: CHOLESTEROL, TOTAL 230 mg/dL (0-200); CKMB 3.9 U/L (0.0-3.6); CREATINE KINASE 39 UL (21-232); HDL CHOLESTEROL 78 mg/dL (32-96); LDL CHOLESTEROL 120 mg/dL (0-100); LDL-HDL RATIO 1.5 ratio (1.5-3.5); MAGNESIUM - SERUM 1.6 mg/dL (1.8-2.4); PRO BNP 214 pg/mL (0-450); TRIGLYCERIDE 162 mg/dL (30-200); TROPONIN-I < 0.017 ng/mL (0.000-0.060)
[2017-06-11 07:06] VITALS: Ht 180.3 cm; Wt 90.1 kg
[2017-06-11 07:41] LABS: CKMB 2.4 U/L (0.0-3.6); CREATINE KINASE 29 UL (21-232)
[2017-06-11 07:42] LABS: TROPONIN-I < 0.017 ng/mL (0.000-0.060)
[2017-06-11 13:31] LABS: CREATINE KINASE 37 UL (21-232)
[2017-06-11 13:33] LABS: TROPONIN-I < 0.017 ng/mL (0.000-0.060)
[2017-06-11 19:55] LABS: CKMB 2.8 U/L (0.0-3.6); CREATINE KINASE 38 UL (21-232); TROPONIN-I < 0.017 ng/mL (0.000-0.060)
[2017-06-12 05:41] LABS: BASOPHILS 0.2 % (0-2); EOSINOPHILS 5.3 % (0-7); HEMATOCRIT 36.2 % (42.0-54.0); HEMOGLOBIN 11.8 g/dL (13.5-17.5); IMMATURE GRANULOCYTES 0.2 % (0-5); LYMPHOCYTES 12.8 % (15-50); MCH 35.5 pg (26.0-34.0); MCHC 32.6 g/dL (31.0-37.0); MEAN PLATELET VOLUME 10.4 fL (7.4-10.4); NEUTROPHILS 70.5 % (40-80); PLATELET COUNT 197 10x3/uL (130-400); RBC 3.32 10x6/uL (4.20-6.10); RDW 14.1 % (11.5-14.5)
[2017-06-12 05:51] LABS: WBC 5.8 10x3/uL (4.8-10.8)
[2017-06-12 05:54] LABS: ANION GAP 14.4 mmol/L (8-16); BILIRUBIN - TOTAL 0.2 mg/dL (0.2-1.3); CALCIUM 8.2 mg/dL (8.5-10.1); CARBON DIOXIDE 22.7 mmol/L (21.0-32.0); CREATININE - SERUM 1.4 mg/dL (0.6-1.3); POTASSIUM - SERUM 4.1 mmol/L (3.5-5.1); PROTEIN - SERUM 5.8 g/dL (6.4-8.2)
[2017-06-12 07:26] LABS: FOLATE (FOLIC ACID) - SERUM 5.5 ng/mL (>3.0)
[2017-06-12] MEDS ORDERED: HYDROCODON-ACE1 EAC7 PO ×2 (07:31→10:48)
[2017-06-12] MEDS ORDERED: CYCLOBENZAPRINE10 MG PO (07:32)
== END 2017-06-12 11:38 | disposition home or self-care (01) ==
LOC: D.ER 20:33 → D.M2 06-11 02:32 → OBSVTIME 06-11 02:32 → D.M2 06-11 02:32
PROVIDERS: Family Medicine
DX: R07.89 Other chest pain (principal); I25.10 Atherosclerotic heart disease of native coronary artery without angina pectoris; Z95.5 Presence of coronary angioplasty implant and graft; I10 Essential (primary) hypertension; J44.9 Chronic obstructive pulmonary disease, unspecified; D75.89 Other specified diseases of blood and blood-forming organs; K80.20 Calculus of gallbladder without cholecystitis without obstruction; Z85.46 Personal history of malignant neoplasm of prostate; Z85.118 Personal history of other malignant neoplasm of bronchus and lung

== ENCOUNTER → 2017-06-22 08:25 | Outpatient (CLI) | payer MEDICARE, OTHER ==
[~2017-06-22 08:25] MED LIST changes: +CYCLOBENZAPRINE10 MG PO
== END | disposition home or self-care (01) ==
LOC: D.NM 08:25
DX: D46.9 Myelodysplastic syndrome, unspecified (principal); C61 Malignant neoplasm of prostate

== ENCOUNTER 2017-06-27 19:07 | Emergency (ER) | payer MEDICARE, OTHER ==
[2017-06-27 19:37] LABS: BASOPHILS 0.1 % (0-2); EOSINOPHILS 3.5 % (0-7); HEMATOCRIT 37.7 % (42.0-54.0); HEMOGLOBIN 12.6 g/dL (13.5-17.5); IMMATURE GRANULOCYTES 0.2 % (0-5); LYMPHOCYTES 13.8 % (15-50); MCH 35.8 pg (26.0-34.0); MCHC 33.4 g/dL (31.0-37.0); MCV 107.1 fL (80.0-100.0); MEAN PLATELET VOLUME 10.2 fL (7.4-10.4); MONOCYTES 7.6 % (2-11); NEUTROPHILS 74.8 % (40-80); PLATELET COUNT 203 10x3/uL (130-400); RBC 3.52 10x6/uL (4.20-6.10); RDW 13.8 % (11.5-14.5); WBC 8.1 10x3/uL (4.8-10.8)
[2017-06-27 19:55] LABS: ALBUMIN 3.3 g/dL (3.4-5.0); ALKALINE PHOSPHATASE 80 U/L (46-116); ALT (SGPT) 60 U/L (10-68); BILIRUBIN - TOTAL 0.19 mg/dL (0.2-1.3); CALC OSMOLALITY 278 mosm/kg (275-300); CALCIUM 8.6 mg/dL (8.5-10.1); CHLORIDE - SERUM 105 mmol/L (98-107); CREATININE - SERUM 1.3 mg/dL (0.6-1.3); GLUCOSE 108 mg/dL (74-106); PROTEIN - SERUM 6.6 g/dL (6.4-8.2); SODIUM 138 mmol/L (136-145); UREA NITROGEN 19 mg/dL (7-18); eGFR NON AFRICAN AMERICAN 57 mL/min (90-120)
[2017-06-27 20:06] LABS: CHOL - HDL RATIO 3.1 ratio (2.3-4.9); CHOLESTEROL, TOTAL 214 mg/dL (0-200); CREATINE KINASE 46 UL (21-232); HDL CHOLESTEROL 69 mg/dL (32-96); LDL CHOLESTEROL 83 mg/dL (0-100); LDL-HDL RATIO 1.2 ratio (1.5-3.5); MAGNESIUM - SERUM 1.7 mg/dL (1.8-2.4); PRO BNP 130 pg/mL (0-450); TRIGLYCERIDE 314 mg/dL (30-200); TROPONIN-I < 0.017 ng/mL (0.000-0.060)
== END 2017-06-27 22:25 | disposition home or self-care (01) ==
LOC: D.ER 19:07
PROVIDERS: Emergency Medicine
DX: R07.89 Other chest pain (principal); I10 Essential (primary) hypertension; E83.42 Hypomagnesemia

== ENCOUNTER 2018-06-10 12:10 | Emergency (ER) | payer MEDICARE, OTHER ==
[~2018-06-10] VITALS: Ht 180.3 cm; Wt 90.9 kg
[2018-06-10 12:26] VITALS: Ht 180.3 cm; Wt 90.9 kg
[2018-06-10] MEDS ORDERED: DONEPEZIL HCL10 MG PO (12:30)
[2018-06-10 13:44] LABS: BASOPHILS 0.1 % (0-2); EOSINOPHILS 8.4 % (0-7); HEMATOCRIT 38.4 % (42.0-54.0); HEMOGLOBIN 12.6 g/dL (13.5-17.5); IMMATURE GRANULOCYTES 0.3 % (0-5); LYMPHOCYTES 7.2 % (15-50); MCH 33.1 pg (26.0-34.0); MCHC 32.8 g/dL (31.0-37.0); MCV 100.8 fL (80.0-100.0); MEAN PLATELET VOLUME 10.7 fL (7.4-10.4); MONOCYTES 7.2 % (2-11); NEUTROPHILS 76.8 % (40-80); PLATELET COUNT 179 10x3/uL (130-400); RBC 3.81 10x6/uL (4.20-6.10); RDW 13.7 % (11.5-14.5); WBC 9.1 10x3/uL (4.8-10.8)
[2018-06-10 13:57] LABS: ALBUMIN 3.4 g/dL (3.4-5.0); ALKALINE PHOSPHATASE 76 U/L (46-116); ALT (SGPT) 40 U/L (10-68); BILIRUBIN - TOTAL 0.35 mg/dL (0.2-1.3); CALC OSMOLALITY 287 mosm/kg (275-300); CALCIUM 9.2 mg/dL (8.5-10.1); CARBON DIOXIDE 23.8 mmol/L (21.0-32.0); CHLORIDE - SERUM 106 mmol/L (98-107); CREATININE - SERUM 1.5 mg/dL (0.6-1.3); GLUCOSE 107 mg/dL (74-106); POTASSIUM - SERUM 4.1 mmol/L (3.5-5.1); PROTEIN - SERUM 7.2 g/dL (6.4-8.2); SODIUM 142 mmol/L (136-145); UREA NITROGEN 27 mg/dL (7-18); eGFR NON AFRICAN AMERICAN 48 mL/min (90-120)
[2018-06-10 14:13] LABS: CKMB 5.3 U/L (0.0-3.6); CREATINE KINASE 98 UL (21-232); PRO BNP 73 pg/mL (0-450); TROPONIN-I < 0.017 ng/mL (0.000-0.060)
[2018-06-10] MEDS ORDERED: PREDNISONE20 MG PO (17:19)
[2018-06-10] MEDS ORDERED: DOXYCYCLINE HY100 M2 PO (17:19)
[2018-06-10 17:31] VITALS: BP 183/83
== END 2018-06-10 17:32 | disposition home or self-care (01) ==
LOC: D.ER 12:10
PROVIDERS: Emergency Medicine
DX: J44.1 Chronic obstructive pulmonary disease with (acute) exacerbation (principal); Z86.79 Personal history of other diseases of the circulatory system; I10 Essential (primary) hypertension; R07.9 Chest pain, unspecified; R09.89 Other specified symptoms and signs involving the circulatory and respiratory systems; R05 Cough

== ENCOUNTER → 2018-11-03 09:06 | Outpatient (CLI) | payer MEDICARE, OTHER ==
[2018-06-10 12:26] VITALS: BMI 27.9
[~2018-11-03 09:06] MED LIST changes: +DONEPEZIL HCL10 MG PO; +DOXYCYCLINE HY100 M2 PO; +PREDNISONE20 MG PO
--- NOTE | 2018-11-08 15:03 | EC ---
PATIENT:MAXWELL DANIELSON DATE OF SERVICE: 11/03/18 SEX: M MEDICAL RECORD: [id number] DATE OF : 42 LOCATION:D[facility] AGE OF PATIENT: 78 ADMISSION DATE: 11/03/18 REFERRING PHYSICIAN: INTERPRETING PHYSICIAN: DARBY HASSAN MD ECHOCARDIOGRAM REPORT ECHO CHARGES 4 ECHO COMPLETE Date: 11/03/18 CLINICAL DIAGNOSIS: H/O HTN/CAD ECHOCARDIOGRAPHIC MEASUREMENTS (adult normal given) AC root (d.<3.7cm) 3.4 cm LV Septum d (<1.2 cm> 1.3 cm Valve Excursion 1.5 cm LV Septum (systole) 1.5 cm Left Atria (s.<4.0cm> 4.6 cm LVPW d(<1.2cm) 1.3 cm RV (d.<2.3cm) 2.6 cm LVPW (sytole) 1.7 cm LV diastole(<5.6CM) 5.8 cm MV E-F(>70mm/sec) cm LV systole 4.6 cm LVOT Diameter 1.9 cm MV exc.(>10mm) cm Est.ejection fraction (50-75%) % DOPPLER: LVIT cm/sec A 96.0 cm/sec E 76.0 cm/sec LA cm/sec RVSP 20.0 mmHg LVOT 79.0 cm/sec AOP1/2T m/s Asc. Ao 102 cm/sec RVOT 62.0 cm/sec RA cm/sec PA 100 cm/sec AV Gradient Peak 4.2 mmHg AV Mean 2.2 mmHg AV Area 2.1 cm MV Gradient Peak 4.4 mmHg MV Mean 1.4 mmHg MV Area cm COMMENTS: OP - HC Mechanical Service Representative: 1 SANDRA CASSIA Assistant Offset Press Operator: 3 Dr. Lopes TAPE# PACS Pericardial Effusion N DATE OF SERVICE: Adequate 2D, color flow, spectral Doppler, and M-Mode. Mild LVH. LV internal dimension is normal. Wall motion is normal. EF is greater than or equal to 55%. Aortic valve is tricuspid. No evidence of stenosis on Doppler interrogation. Left atrium is dilated at 4.6 cm. Mitral valve shows no prolapse. Trace MR. Right-sided chambers are grossly normal. Trace TR. TRANSINT:[id number] Voice Confirmation ID: [id number] DOCUMENT ID: [id number] ECHOCARDIOGRAM REPORT [id number] MAXWELL DANIELSON,DARBY Vizcarra MD at 1503 CC: [id number] DICTATION DATE: 11/04/18 1307 NEWBORN HEARING SCREENER: 11/04/18 1459 DEP CLI 11/03/18 [place] [id number] [place] [id number]
== END | disposition home or self-care (01) ==
LOC: D.HCCARDIO 09:06
PROVIDERS: ATTEND Internal Medicine Interventional Cardiology
DX: I25.10 Atherosclerotic heart disease of native coronary artery without angina pectoris (principal)

== ENCOUNTER → 2018-11-18 09:16 | Outpatient (CLI) | payer MEDICARE, OTHER ==
[2018-06-10 12:26] VITALS: BMI 27.9
--- NOTE | 2018-11-22 09:50 | ST ---
PATIENT:MAXWELL DANIELSON MEDICAL RECORD: [id number] SEX: M LOCATION:[facility] ORDER #: ADMISSION DATE: 11/18/18 AGE OF PATIENT: 78 REFERRING PHYSICIAN: INTERPRETING PHYSICIAN: YOUNG GLASER MD DATE OF SERVICE: 11/18/2018 Nuclear Stress Test INDICATION: Angina, coronary artery disease, hypertension and hyperlipidemia. He was exercised on standard Lexiscan protocol with 33 mCi of sestamibi injected at peak stress 11 mCi used previously for rest images. FINDINGS: Gated SPECT reveals preserved ejection fraction at 71% with good wall motion and thickening and brightening throughout all segments. SPECT imaging Cardiolite was used as myocardial fusion agent. There is homogeneous uptake throughout all segments at rest and stress with no evidence of inducible ischemia or previous infarction. OVERALL IMPRESSION: 1. This is a normal nuclear stress test with no evidence of inducible ischemia or previous infarction. 2. Gated SPECT reveals a preserved ejection fraction at 71%. In this patient with ongoing symptomatology, the current scan does not suggest the presence of hemodynamically significant coronary artery disease. Evaluate noncardiac etiology of chest pain. TRANSINT:[id number] Voice Confirmation ID: [id number] DOCUMENT ID: [id number] YOUNG GLASER MD at 0950 CC: WALT GRIMALDO [id number] DICTATION DATE: 11/19/18 1132 CHOKER SETTER: 11/19/18 2255 [facility] CLI 11/18/18 [facility] [address] [place] [address]
== END | disposition home or self-care (01) ==
LOC: D.HCCARDIO 09:16
PROVIDERS: ATTEND Internal Medicine Interventional Cardiology
DX: R07.9 Chest pain, unspecified (principal)

== ENCOUNTER → 2019-07-28 09:26 | Outpatient (CLI) | payer MEDICARE, OTHER ==
[2018-06-10 12:26] VITALS: BMI 27.9
== END | disposition home or self-care (01) ==
LOC: D.CT 09:26
PROVIDERS: ATTEND Family Medicine
DX: R10.84 Generalized abdominal pain (principal)

== ENCOUNTER → 2019-10-12 12:32 | Outpatient (CLI) | payer MEDICARE, OTHER ==
[2018-06-10 12:26] VITALS: BMI 27.9
--- NOTE | 2019-10-13 10:33 | EC ---
PATIENT:MAXWELL DANIELSON DATE OF SERVICE: 10/12/19 SEX: M MEDICAL RECORD: [id number] DATE OF : 42 [facility] AGE [facility]: 79 ADMISSION DATE: 10/12/19 REFERRING PHYSICIAN: INTERPRETING PHYSICIAN: DARBY HASSAN MD ECHOCARDIOGRAM REPORT ECHO CHARGES 4 ECHO COMPLETE Date: 10/12/19 CLINICAL DIAGNOSIS: HTN/LVH ECHOCARDIOGRAPHIC MEASUREMENTS (adult normal given) AC root (d.<3.7cm) 3.0 cm LV Septum d (<1.2 cm> 1.2 cm Valve Excursion 1.4 cm LV Septum (systole) 1.4 cm Left Atria (s.<4.0cm> 3.4 cm LVPW d(<1.2cm) 1.4 cm RV (d.<2.3cm) 3.2 cm LVPW (sytole) 1.5 cm LV diastole(<5.6CM) 4.8 cm MV E-F(>70mm/sec) cm LV systole 3.7 cm LVOT Diameter 1.9 cm MV exc.(>10mm) 1.2 cm Est.ejection fraction (50-75%) % DOPPLER: LVIT cm/sec A 88.0 cm/sec E 48.0 cm/sec LA cm/sec RVSP 27 mmHg LVOT 78 cm/sec AOP1/2T m/s Asc. Ao 98 cm/sec RVOT cm/sec RA cm/sec PA cm/sec AV Gradient Peak 3.86 mmHg AV Mean 2.21 mmHg AV Area 2.4 cm MV Gradient Peak 4.13 mmHg MV Mean 1.63 mmHg MV Area cm COMMENTS: Cartoon Animator: 2 STEVE PARDO Circuit Judge: 3 Dr. Lopes TAPE# PACS Pericardial Effusion N DATE OF SERVICE: Adequate 2D, color flow imaging, spectral Doppler, and M-Mode. Mild LVH. LV internal dimension is normal. Wall motion is normal. EF is greater than or equal to 55%. Aortic valve is tricuspid. No evidence of stenosis by Doppler interrogation. Left atrium normal at 3.4 cm. Mitral valve shows no prolapse. Trace MR. Right-sided chambers are grossly normal. Trace TR. ECHOCARDIOGRAM REPORT [id number] MAXWELL DANIELSON TRANSINT:[id number] Voice Confirmation ID: [id number] DOCUMENT ID: [id number] DARBY HASSAN MD at 1033 CC: [id number] DICTATION DATE: 10/13/19824 SAP PORTAL DEVELOPER: 10/13/19 1004 [facility] CLI 10/12/19 [place] [id number] [place] [address]
== END | disposition home or self-care (01) ==
LOC: D.HCCECHO 12:32
PROVIDERS: ATTEND Internal Medicine Interventional Cardiology
DX: I10 Essential (primary) hypertension (principal)

== ENCOUNTER → 2020-03-14 08:40 | Outpatient (CLI) | payer MEDICARE, OTHER ==
[2018-06-10 12:26] VITALS: BMI 27.9
== END | disposition home or self-care (01) ==
LOC: D.CT 08:40
PROVIDERS: ATTEND Family Medicine
DX: C67.9 Malignant neoplasm of bladder, unspecified (principal); C18.9 Malignant neoplasm of colon, unspecified; C78.02 Secondary malignant neoplasm of left lung

== ENCOUNTER 2020-08-29 20:01 | Emergency (ER) | payer MEDICARE, OTHER ==
[~2020-08-29] VITALS: Ht 180.3 cm; Wt 95.5 kg
[2020-08-29 20:07] VITALS: Ht 180.3 cm; Wt 95.5 kg
[2020-08-29] MEDS ORDERED: ALBUTEROL2.5 MG/3 M INH (20:15)
[2020-08-29 20:24] LABS: BASOPHILS 0.2 % (0-2); EOSINOPHILS 10.9 % (0-7); HEMATOCRIT 39.1 % (42.0-54.0); HEMOGLOBIN 12.7 g/dL (13.5-17.5); IMMATURE GRANULOCYTES 0.3 % (0-5); LYMPHOCYTE ABS# 1.21 10x3/uL (1.32-3.57); MCH 33.8 pg (26.0-34.0); MCHC 32.5 g/dL (31.0-37.0); MEAN PLATELET VOLUME 10.9 fL (7.4-10.4); MONOCYTES 8.5 % (2-11); NEUTROPHIL ABS# 5.72 10x3/uL (1.78-5.38); NEUTROPHILS 66.1 % (40-80); RBC 3.76 10x6/uL (4.20-6.10); RDW 14.2 % (11.5-14.5); WBC 8.7 10x3/uL (4.8-10.8)
[2020-08-29 20:26] LABS: PLATELET COUNT 220 10x3/uL (130-400)
[2020-08-29 20:32] LABS: APTT 27.8 SECONDS (22.8-39.4); CALC OSMOLALITY 282 mosm/kg (275-300); CALCIUM 9.4 mg/dL (8.5-10.1); CARBON DIOXIDE 20.4 mmol/L (21.0-32.0); CHLORIDE - SERUM 104 mmol/L (98-107); CREATININE - SERUM 2.1 mg/dL (0.6-1.3); GLUCOSE 127 mg/dL (74-106); INR 1.02 (0.85-1.17); PROTIME 12.4 SECONDS (11.6-15.0); SODIUM 138 mmol/L (136-145); UREA NITROGEN 26 mg/dL (7-18); eGFR NON AFRICAN AMERICAN 32 mL/min (90-120)
[2020-08-29 20:47] LABS: ALBUMIN 3.5 g/dL (3.4-5.0); ALKALINE PHOSPHATASE 84 U/L (30-120); ALT (SGPT) 35 U/L (10-68); BILIRUBIN - TOTAL 0.34 mg/dL (0.2-1.3); CREATINE KINASE 262 UL (21-232); PRO BNP 108 pg/mL (0-450); PROTEIN - SERUM 7.6 g/dL (6.4-8.2)
[2020-08-29 20:53] LABS: TROPONIN-I < 0.017 ng/mL (0.000-0.060)
[2020-08-29] MEDS ORDERED: VIBRAMYCIN 100100 MG PO (22:25)
[2020-08-29] MEDS ORDERED: PREDNISONE20 MG PO (22:25)
[2020-08-29 22:41] VITALS: BP 186/84
== END 2020-08-29 22:34 | disposition home or self-care (01) ==
LOC: D.ER 20:01
PROVIDERS: Family Medicine
DX: J44.1 Chronic obstructive pulmonary disease with (acute) exacerbation (principal); R93.5 Abnormal findings on diagnostic imaging of other abdominal regions, including retroperitoneum; N18.9 Chronic kidney disease, unspecified; R73.9 Hyperglycemia, unspecified; I10 Essential (primary) hypertension; Z95.5 Presence of coronary angioplasty implant and graft; K21.9 Gastro-esophageal reflux disease without esophagitis

== ENCOUNTER 2020-09-17 14:24 | Emergency (ER) | payer MEDICARE, OTHER ==
[~2020-09-17] VITALS: Ht 180.3 cm; Wt 90.9 kg
[~2020-09-17 14:24] MED LIST changes: +ALBUTEROL2.5 MG/3 M INH; +VIBRAMYCIN 100100 MG PO
[2020-09-17 14:34] VITALS: Ht 180.3 cm; Wt 90.9 kg
[2020-09-17 16:12] LABS: BASOPHILS 0.3 % (0-2); EOSINOPHILS 12.2 % (0-7); HEMATOCRIT 37.9 % (42.0-54.0); HEMOGLOBIN 12.1 g/dL (13.5-17.5); IMMATURE GRANULOCYTES 0.3 % (0-5); LYMPHOCYTE ABS# 0.64 10x3/uL (1.32-3.57); LYMPHOCYTES 9.7 % (15-50); MCH 32.9 pg (26.0-34.0); MCHC 31.9 g/dL (31.0-37.0); MEAN PLATELET VOLUME 10.9 fL (7.4-10.4); MONOCYTES 8.4 % (2-11); NEUTROPHIL ABS# 4.58 10x3/uL (1.78-5.38); NEUTROPHILS 69.1 % (40-80); PLATELET COUNT 189 10x3/uL (130-400); RBC 3.68 10x6/uL (4.20-6.10); RDW 13.8 % (11.5-14.5); WBC 6.6 10x3/uL (4.8-10.8)
[2020-09-17 16:29] LABS: CALC OSMOLALITY 286 mosm/kg (275-300); CALCIUM 9.1 mg/dL (8.5-10.1); CARBON DIOXIDE 23.2 mmol/L (21.0-32.0); CHLORIDE - SERUM 107 mmol/L (98-107); CREATININE - SERUM 1.8 mg/dL (0.6-1.3); GLUCOSE 132 mg/dL (74-106); POTASSIUM - SERUM 4.4 mmol/L (3.5-5.1); SODIUM 140 mmol/L (136-145); UREA NITROGEN 28 mg/dL (7-18); eGFR NON AFRICAN AMERICAN 39 mL/min (90-120)
[2020-09-17 16:46] LABS: ALBUMIN 3.1 g/dL (3.4-5.0); ALKALINE PHOSPHATASE 111 U/L (30-120); ALT (SGPT) 36 U/L (10-68); BILIRUBIN - TOTAL 0.25 mg/dL (0.2-1.3); C-REACTIVE PROTEIN 0.9 mg/dL (0.0-0.9); MAGNESIUM - SERUM 1.9 mg/dL (1.8-2.4); PRO BNP 78 pg/mL (0-450); PROTEIN - SERUM 7.1 g/dL (6.4-8.2)
[2020-09-17 17:02] LABS: TROPONIN-I < 0.017 ng/mL (0.000-0.060)
[2020-09-17] MEDS ORDERED: STERAPRED DS 1010 MG PO (17:48)
[2020-09-17] MEDS ORDERED: DOXYCYCLINE HY100 M2 PO (17:48)
[2020-09-17 18:20] VITALS: BP 190/86
== END 2020-09-17 18:20 | disposition home or self-care (01) ==
LOC: D.ER 14:24
PROVIDERS: Family Medicine
DX: J44.1 Chronic obstructive pulmonary disease with (acute) exacerbation (principal); I25.10 Atherosclerotic heart disease of native coronary artery without angina pectoris; I10 Essential (primary) hypertension; K21.9 Gastro-esophageal reflux disease without esophagitis